=== PATIENT | female | born 1960 | race Caucasian/White ===

== ENCOUNTER 2019-03-04 12:58 | Emergency (ER) | payer MEDICAID, SELFPAY ==
[2019-03-04 12:59] VITALS: BP 149/76; PULSE 91; RESP 16; TEMP 36.7; O2SAT 97; BMI 32.1
--- NOTE | 2019-03-04 13:50 | EKG12_ITS ---
Test Reason : LOWER EXTREM PAIN Blood Pressure : / mmHG Vent. Rate : 089 BPM Atrial Rate : 089 BPM P-R Int : 134 ms QRS Dur : 080 ms QT Int : 374 ms P-R-T Axes : -15 020 -26 degrees QTc Int : 455 ms Normal sinus rhythm Nonspecific ST and T wave abnormality Abnormal ECG Confirmed by SHANTI CAPONE ([id number]), international editorial producer ELVIE DOUGHERTY ([id number]) on 03/06/2019 2:27:19 PM Referred By: Chloe Perez Confirmed By:SHANTI CAPONE
--- NOTE | 2019-03-04 13:51 | CT_ITS ---
STUDY: CTA HEAD AND NECK WITH CONTRAST REASON FOR EXAM: Female, 58 years old. Right leg weakness. No known injury. RADIATION DOSAGE (If Supplied By Facility): CTDIvol = ( 19.83 ) mGy, DLP = ( 629.08 ) mGycm TECHNIQUE: CT angiography was performed with a multi-detector CT scanner. Data acquisition was obtained from the skull base through the vertex following intravenous administration of 100 IV Isovue 370. MIP images were reconstructed from the axial data set. Post-processing of the angiographic images was performed, with multiplanar reformation and 3D reconstruction. Individualized dose optimization techniques were used for this CT. COMPARISON: No relevant priors. FINDINGS: Normal bilateral petrous carotid arteries. There is calcified plaque formation of the right cavernous carotid artery, without a cross-sectional luminal stenosis. There is calcified plaque formation of the left cavernous carotid artery, without a cross-sectional luminal stenosis. Normal right A1 segments of the anterior cerebral artery. Normal left A1 segments of the anterior cerebral artery. Normal intact anterior communicating artery (ACOM). Normal bilateral A2 segments of the anterior cerebral arteries. Normal right M1 and M2 segments of the middle cerebral arteries, with a normal M1 bifurcation. Normal left M1 and M2 segments of the middle cerebral arteries, with a normal M1 bifurcation. Normal right posterior communicating artery (PCOM). Normal left posterior communicating artery (PCOM). Normal bilateral vertebral arteries. Normal basilar artery with a normal basilar bifurcation. The visualized bilateral superior cerebellar (SCA) arteries are normal. Normal bilateral P1, P2 and visualized P3 segments of the posterior cerebral arteries. There is no demonstrated aneurysm of the [place]. There is no demonstrated abnormality of the visualized brain. AORTIC ARCH: There is atherosclerotic calcific plaque formation of the aortic arch and great vessels arising from the aortic arch, without a hemodynamically significant stenosis. Atherosclerotic calcification at the origin of the left subclavian artery and right brachiocephalic artery. RIGHT CAROTID ARTERIES: Normal right common carotid artery (CCA). Normal right common carotid bulb. Normal origin of the right internal carotid (ICA) artery without a hemodynamically significant stenosis. Normal visualized cervical portion of the right internal carotid artery. Normal origin of the right external carotid artery (ECA). LEFT CAROTID ARTERIES: Normal left common carotid artery (CCA). Normal left common carotid bulb. There is mild atherosclerotic plaque formation of the origin of the left internal carotid artery with less than 50% cross sectional diameter stenosis. Normal visualized cervical portion of the left internal carotid artery. Normal origin of the left external carotid artery (ECA). VERTEBRAL ARTERIES: Normal bilateral vertebral arteries. Multilevel degenerative changes of the cervical spine. CT/CTA Head AND Neck W/ Contrast IMPRESSION: Normal CTA Head and neck with contrast. N.B. : The above information has been verbally conveyed by Kyle Looney to Dr Andre MD, on 03/04/2019 14:34:37 (ET). Electronically Signed: Kyle Looney, at 14:35 EDT , Service support ,
--- NOTE | 2019-03-04 14:00 | ED.DCSUM_ITS ---
- ER Visit Summary Date of Service: 03/04/19 Chief Complaint: Right lower leg weakness History of Present Illness: The patient is a 58 F as male history of kidney stones, cholecystectomy and partial parathyroidectomy. Patient states she was in her normal state of health today. Around 11:00 she had pain in her right lower extremity was crampy in the calf. Said that lasted less than an hour resolved. At noon she started having weakness in her right foot and ankle and lower leg. Trouble lifting it. Pain was gone. She had no numbness whatsoever. No other symptoms. No back pain. No trouble with her vision or speech. No facial droop or weakness. No trouble with her speech. She is never had an ything like this before. She denies any headache. She is on no blood thinners. She denies any head trauma. No fever. Physical Examination: Older female no acute distress. Vital signs are stable afebrile. HEENT exam unremarkable. Normal speech. No facial droop. No numbness. Neck nontender no lymphadenopathy. Lungs clear to auscultation bilaterally. Heart regular rate and rhythm no murmur. Abdomen soft and nontender. Normal bowel sounds no peritoneal signs. Extremities moves all 4. The right leg she has trouble lifting the right leg off the bed. When she tries to lift it slides back towards her. Dorsi and plantarflexion is extremely weak. She patient has a foot drop and dorsiflexion is severely weak. She has a palpable DP pulse. The right leg is slightly cool compared to the left but is not cold. On the left calf is nontender no edema. She can wiggle her toes on the right barely. Left leg is normal normal motor strength and sensation able lifted off the bed easily. Strong DP pulse. Upper extremities are normal. Back exam nontender. Neurologically she is awake and alert. No change she has no sensory loss. No numbness. She has motor weakness in the right leg including dorsi and plantar flexion. Weakness with lifting her leg off the bed she is unable. And a diminished right ankle reflex. Patellar reflex appears normal. NIH score is 2. Test Results: CTA head neck read as normal by the radiologist. CT brain without contrast read as normal by the radiologist. All reviewed by me. EKG sinus rhythm rate of 89 no acute abnormality. No ischemia. No dysrhythmia. See unremarkable hemoglobin 15. Electrolytes unremarkable normal creatinine gap. Troponin normal. Emergency Department Course and Treatment: Was for an acute stroke versus acute arterial clot versus cord compression of her back. Currently there is no radiological findings of stroke. The arterial study of her right legs are some small vessel disease in her lower extremity but no acute arterial clot. Multiple repeat exams over the patient's emergency department course and showed no change. No worsening of her symptoms. None of the other extremities are involved and her NIH score remains at 2. She is not a TPA candidate. Treatment Plan: I spoke to the hospitalist will admit the patient. I spoke to neurology who wants the patient admitted also but also wants me to obtain a MRI of her lumbar spine to rule out any type of cord compressing lesion. That has b een ordered and is pending. That will be checked and if no acute surgical emergency the patient will be admitted here. For further evaluation and work-up for a possible acute stroke. Disposition: Admission pending the MRI of the back results. Impression: Acute right lower extremity weakness of uncertain etiology Rule out CVA This note was generated with [employer] dictation software. It may contain incorrect words, spelling, and punctuation that were not noted in review of the chart prior to signing ED Disposition - Plan for ED Patient:
--- NOTE | 2019-03-04 14:03 | CT_ITS ---
STUDY: CT BRAIN WITHOUT CONTRAST REASON FOR EXAM: Female, 58 years old. Right leg weakness. RADIATION DOSAGE (If Supplied By Facility): CTDIvol = ( 44.99 ) mGy, DLP = ( 745.49 ) mGycm TECHNIQUE: Transaxial CT imaging of the brain was performed without administration of intravenous contrast material. Individualized dose optimization techniques were used for this CT. COMPARISON: No relevant priors. FINDINGS: Normal soft tissue structures. Normal calvarium. Normal size ventricles and extra-axial spaces for the patient's age. Normal white matter tracts of the cerebral hemispheres. Normal basal ganglia and thalami. Normal brainstem. Normal cerebellum. There is no intracranial hemorrhage. There are no findings of an acute ischemic infarction. Atherosclerotic calcification of the cavernous portions of the internal carotid arteries bilaterally. Normal visualized paranasal sinuses. CT/Brain/Head without Contrast IMPRESSION: Normal unenhanced CT scan of the brain. N.B. : The above information has been verbally conveyed by Kyle Looney to Burak Powell on 03/04/2019 14:23:17 (ET). Electronically Signed: Kyle Looney, at 14:24 EDT , Service support ,
--- NOTE | 2019-03-04 14:04 | ADUL_ITS ---
Reason For Study: leg weakness, Arterial clot ? Right Velocities Ext. Iliac Artery, dist = 86.3 cm./sec. Common Femoral Artery, mid = 65.4 cm./sec. Supf Femoral Artery, prox = 63.2 cm./sec. Supf Femoral Artery, mid = 59.9 cm./sec. Supf Femoral Artery, dist. = 32.7 cm./sec. Profunda Femoral Artery = 61.0 cm./sec. Popliteal Artery, prox. = 85.5 cm./sec. Popliteal Artery, mid = 24.8 cm./sec. Popliteal Artery, dist = 39.1 cm./sec. Post. Tibial Artery, mid = 14.9 cm./sec. Peroneal Artery, prox = 16.4 cm./sec. Peroneal Artery, mid = 16.4 cm./sec. Peroneal Artery,dist = 14.9 cm./sec. Ant. Tibial Artery, prox = 17.4 cm./sec. Ant. Tibial Artery, mid = 15.0 cm./sec. Ant. Tibial Artery, dist = 20.2 cm./sec. Unable to demonstrate flow in the proximal and distal ST[facility]ER. Procedure The exam was diagnostic. Exam performed portable in ED. Prelim to Dr. Powell. Interpretation Summary Patent right external iliac, common femoral, superficial femoral, and popliteal arteries. Flow could not be identified within the proximal and distal right posterior tibial artery suggesting occlusion at these sites. Patent right peroneal and anterior tibial arteries. Velocities are diminished but reverse component of waveforms still present suggesting 20-49% stenosis based upon waveforms Ordering Physician: Felix Powell Performed By: Austin Turner RVMayra
[2019-03-04 14:05] LABS: Absolute Lymphocyte Count 2.94 X10^3/uL (0.83-4.51); Absolute Neutrophil Count 7.8 X10^3/uL (2.0-7.7); Basophil# 0.06 X10^3/uL; Basophil% 0.5 % (0-1); Eosinophil# 0.13 X10^3/uL; Eosinophils% 1.1 % (0-5); Hematocrit 48.1 % (37-47); Hemoglobin 15.7 g/dL (12.0-15.0); Lymphocyte # 2.94 X10^3/ul (4.0); Lymphocyte % 25.4 % (19-41); Mean Corp Hgb Conc 32.6 g/dL (32-36); Mean Corpuscular Hgb 29.4 pg (27.0-32.0); Mean Corpuscular Volume 90.1 fL (81-99); Mean Platelet Vol. 11.3 fl (6.2-12.0); Monocyte% 5.2 % (0-10); NRBC Flagged by Analyzer 0 % (0-5); Neutrophil # 7.81 X10^3/uL (2.7-7.7); Neutrophil % 67.5 % (47-70); Platelet Count 230 K/mm3 (150-450); RBC Distribution Width CV 13.8 % (11.6-14.6); RBC Distribution Width SD 45.3 fl (35.1-43.9); Red Blood Count 5.34 M/mm3 (4.2-5.4); White Blood Count 11.6 K/mm3 (4.4-11.0)
--- NOTE | 2019-03-04 14:10 | RAD_ITS ---
STUDY: X-RAY CHEST REASON FOR EXAM: Female, 58 years old. Possible CVA. TECHNIQUE: Single AP portable view of the chest. COMPARISON: None. FINDINGS: Hyperinflation. The lungs are clear. There is no demonstrated pleural abnormality. Normal size heart. Normal mediastinum and paresh. Normal visualized pulmonary arteries. Normal visualized aortic arch and descending thoracic aorta. Normal visualized thoracic spine. Normal visualized ribs, clavicles, and shoulders. There is no demonstrated abnormality of the visualized soft tissue structures of the upper abdomen. RAD/Chest 1 View IMPRESSION: Normal x-ray examination of the chest. Electronically Signed: Kyle Looney, at 14:37 EDT , Service support ,
[2019-03-04 14:13] LABS: International Normalized Ratio 1.1; Prothrombin Time (Protime)PT. 13.9 SECONDS (11.7-14.9)
[2019-03-04 14:14] LABS: Partial Thromboplast Time 26.9 Seconds (24.1-36.2)
[2019-03-04 14:21] LABS: Anion Gap 6 (5-15); BUN 24 mg/dL (7-18); BUN/Creat Ratio 25.5 RATIO (10-20); Calcium,Total 9.3 mg/dL (8.5-10.1); Chloride 108 mmol/L (98-107); Creatinine, Serum 0.94 mg/dL (0.55-1.02); EST Glomerular Filtration Rate 64 mL/min (>60); Est Glom Filt Rate - Afr Amer 78 mL/min (>60); Estimated Creatinine Clearance 48.03 ml/min; Glucose 100 mg/dL (74-106); Potassium 3.5 mmol/L (3.5-5.1); Sodium Level 139 mmol/L (136-145)
[2019-03-04] MEDS: 0.9% Normal Saline 1,000 ML 999 ML IV (14:30)
[2019-03-04 14:33] VITALS: O2SAT 97
--- NOTE | 2019-03-04 14:39 | ED.RN ---
PER DR[facility] NOT NECESSARY.
[2019-03-04 15:07] VITALS: BP 106/79; PULSE 84; RESP 21; O2SAT 99
--- NOTE | 2019-03-04 15:53 | CASEMGMT ---
Case Management Progress Notes: Met with patient at bedside, states does not have a PCP, agreed to CM providing a PCP list to establish care at this time-given. Denies any other questions. Nurse notified that patient had to use the bathroom. Poonam John RNCM
--- NOTE | 2019-03-04 16:08 | MRI_ITS ---
STUDY: MRI LUMBAR SPINE WITHOUT CONTRAST REASON FOR EXAM: Female, 58 years old. Right foot drop and leg weakness TECHNIQUE: Standardized fat and water weighted pulse sequences were obtained in the sagittal and axial planes. COMPARISON: None FINDINGS: T12-L1: Normal endplates. Normal disc height, hydration and morphology. Normal bilateral facet joints. Normal central canal and bilateral lateral recesses. Normal bilateral intervertebral neural foramina. Normal lumbar lordosis. There is no substantial scoliosis. Normal conus medullaris that terminates at the L1 level. L1-2: Normal endplates. Normal disc height, hydration and morphology. Normal bilateral facet joints. Normal central canal and bilateral lateral recesses. Normal bilateral intervertebral neural foramina. L2-3: Normal endplates. Normal disc height, hydration and morphology. Vertebral. Bilateral facet joints. Normal central canal and bilateral lateral recesses. Normal bilateral intervertebral neural foramina. L3-4: Normal endplates. Normal disc height, hydration and morphology. Hypertrophic bilateral facet joints. Normal central canal and bilateral lateral recesses. Narrowed bilateral intervertebral neural foramina. L4-5: Normal endplates. Normal disc height, hydration and morphology. Hypertrophic bilateral facet joints. Normal central canal and bilateral lateral recesses. Narrowed bilateral intervertebral neural foramina. L5-S1: Moderate posterior paracentral disc protrusion causing severe narrowing of the neural foramen on the right. Central canal left neural foramen patent. Probable nerve root impingement L5 or S1. Normal visualized sacral ala. Normal visualized paraspinous soft tissue structures. MRI/Spine Lumbar (Routine) IMPRESSION: Moderate right paracentral disc extrusion causing severe narrowing of the neural foramen and L5 or S1 nerve root impingement. Multilevel neural foraminal narrowing as noted above. Electronically Signed: Jose Carlos Brewster MD at 19:31 EDT , Service support ,
[2019-03-04 16:24] VITALS: BP 156/72; PULSE 88; RESP 19; O2SAT 95
--- NOTE | 2019-03-04 16:31 | HP.PCM_ITS ---
Problem List (1) CVA (cerebral vascular accident) Status: Acute Qualifiers: CVA mechanism: unspecified Qualified Code(s): I63.9 - Cerebral infarction, unspecified (2) Elevated BP without diagnosis of hypertension Status: Acute (3) Tobacco use Status: Chronic (4) Hyperparathyroidism Status: Chronic (5) Thyroid nodule Status: Chronic (6) Obesity (BMI 30.0-34.9) Status: Chronic History of Present Illness Date of Admission: 03/04/19 Chief Complaint: RLE weakness The patient is a 58 y/o F w/ PMHx: Tobacco use, Hyperparathyroidism s/p partial resection, Hx Thyroid nodule, Hx Nephrolithiasis, Obesity who presents to the [facility] ED on 03/04/19 w/ history of onset at approximately 11 AM sudden right anterior rojas dull 10 out of 10 pain which lasted approximately 1 hour with no specific trauma or injury although she does admit to very heavy lifting at work more than usual with then onset right lower extremity weakness which continued and progress she notes most notably finding that she was unable to lift up her foot. She denied any other neurological changes or any sensation changes to the right lower extremity. Work-up in the ED included T 98.1, heart rate 88, BP 156/72, respiratory rate 19, 95% room air, CBC with WBC 11.6, hemoglobin 15.7, platelet 230 with left shift, unremarkable coags, unremarkable BMP, troponin less than 0.015, EKG with no acute evidence of ischemia, CTA head and neck unremarkable, CT brain with no acute findings, chest x-ray with no acute cardio primary findings, ultrasound arterial right lower extremity as concern pulse mildly decreased in strength from left lower extremity and mildly more cool to touch than alternate extremity noted to have vascular disease but no acute clot and appropriate flow. ED discussed case with neurologist on-call, Dr. Jose jackson requested MRI lumbar spine to assure no etiology for current presentation. Discussed with ED physician and plan of care includes to obtain MRI lumbar spine if no immediate need for transfer to tertiary facility would plan to admit and per discussion with neurology pursue CVA evaluation. Past Medical History Past Medical History (Chronic Problems): Chronic Problems Tobacco use (Chronic) Hyperparathyroidism (Chronic) Thyroid nodule (Chronic) Obesity (BMI 30.0-34.9) (Chronic) Allergies No Known Allergies Allergy (Verified 03/04/19 12:58) Home Medications: Ambulatory Orders Medication Instructions Recorded Naproxen Sodium 880 mg PO DAILY PRN PRN 03/04/19 Surgical History: - - Partial thyroidectomy, cholecystectomy, bilateral carpal tunnel surgery, bilateral tubal ligation, tonsillectomy. Psychiatric History: No pertinent psych hx [employer] History: No pertinent [employer] history Lives: With Family Smoking Status: Current every day smoker - Patient currently smoking 1 pack/day cigarette tobacco usage, 40-year usage history. Tobacco Use: Cigarettes Alcohol: None Drugs: None - *Family History Maternal History Items: - - Patient notes a maternal family history of diabetes as well as cancer both leukemia and lymphoma. Paternal History Items: - - Patient states she does not know any of her paternal family history as he was not present in her life. Review of Systems Constitutional: Reports: Malaise, Weakness, Fatigue. Denies: Chills, Fever, Weight Change HEENT: Denies: Head Aches, Sinus Congestion, Sinus Drainage Cardiovascular: Denies: Chest Pain, Palpitations Respiratory: Denies: Cough, Shortness of breath at rest, Sputum production Gastrointestinal: Denies: Abdominal Pain, Nausea, Vomiting Genitourinary: Denies: Dysuria Musculoskeletal: Reports: Leg Pain. Denies: Joint Pain, Joint Tenderness Skin: Denies: Rash, Wounds Neurological: Reports: Focal weakness. Denies: Numbness, Tingling Psychiatric: Denies: Anxiety, Depression, Homicidal Ideations, Suicidal Ideations Hematologic/ Lymphatic: Denies: Easy Bruising, Easy Bleeding VTE Information - Inpt Only VTE Present on Admission: No VTE Mechan Device Prophylaxis: SCD's VTE Pharm Prophylaxis ordered?: Yes Patient Problems: Active and Suspected Problems CVA (cerebral vascular accident) (Acute) Elevated BP without diagnosis of hypertension (Acute) Subjective: Seated upright in ED bed, no acute distress, notes that current right lower extremity deficits remains stable. Objective: Physical Examination: General: awake, alert, oriented x 3 and cooperative, seated upright in the ED bed in no apparent distress. Skin: normal color, turgor, no icterus, cyanosis. HEENT: AT/NC, EOMI, PERRLA, MMM, no carotid bruits or JVD noted. Lungs: CTA bilaterally, moderate effort, mild decrease BL bases, no rales, ronchi or wheezing. Heart: Regular rate and rhythm; no gallop, rub audible. Abdomen: soft, obese, NTTP, ND, normal BS, no HSM. Extremities: no cyanosis, clubbing, or edema, absent dorsi plantarflexion of the right lower extremity, DP pulses bilaterally intact although left stronger, left lower extremity foot mildly cooler to touch than right, sensation remains intact. Neurological: patient awake, alert, oriented x 3; cognitive function intact; pupils equally reactive to light and accomodation; cranial nerves II-XII grossly normal, moving all 4 extremities however reduction right lower extremity with absent dorsi plantarflexion of the right lower extremity, DP pulses bilaterally intact although left stronger, left lower extremity foot mildly cooler to touch than right, sensation remains intact, negative Babinski bilaterally, [id number] bilateral upper extremities intact, unable to perform right lower extremity [id number], no drift to right lower extremity with evaluation. Psychiatric: affect appears normal, no acute evidence of depressive or anxiety feelings. - Physical Exam Vital Signs Temp Pulse Resp BP Pulse Ox 98.1 F 88 19 H 156/72 H 95 03/04/19 12:59 03/04/19 16:24 03/04/19 16:24 03/04/19 16:24 03/04/19 16:24 Oxygen Flow Rate (L/min) 2 Oxygen Delivery Method Room Air Weight: 170 lb Body Mass Index (BMI) 32.1 Finger Stick Blood Glucose 100 Laboratory Tests Past 24 Hrs 03/04/19 03/04/19 03/04/19 14:00 14:00 14:00 WBC 11.6 H RBC 5.34 Hgb 15.7 H Hct 48.1 H MCV 90.1 MCH 29.4 MCHC 32.6 RDW Std Deviation 45.3 H RDW Coeff of Jane 13.8 Plt Count 230 MPV 11.3 Immature Gran % (Auto) 0.300 Neut % (Auto) 67.5 Lymph % (Auto) 25.4 [place] % (Auto) 5.2 Eos % (Auto) 1.1 Baso % (Auto) 0.5 Absolute Neuts (auto) 7.8 H Absolute Lymphs (auto) 2.94 Nucleated RBC % 0 PT 13.9 INR 1.1 APTT 26.9 Sodium 139 Potassium 3.5 Chloride 108 H Carbon Dioxide 25.0 Anion Gap 6 BUN 24 H Creatinine 0.94 Estim Creat Clear Calc 48.03 Est GFR (MDRD) Af Amer 78 Est GFR (MDRD) Non-Af 64 BUN/Creatinine Ratio 25.5 H Glucose 100 Calcium 9.3 Troponin I < 0.015 Assessment/Plan All Active Problems CVA (cerebral vascular accident) (Acute) Elevated BP without diagnosis of hypertension (Acute) The patient is a 58 y/o F w/ PMHx: Tobacco use, Hyperparathyroidism s/p partial resection, Hx Thyroid nodule, Hx Nephrolithiasis, Obesity who presents to the [facility] ED on 03/04/19 w/ history of onset at approximately 11 AM sudden right anterior rojas dull 10 out of 10 pain which lasted approximately 1 hour with no specific trauma or injury although she does admit to very heavy lifting at work more than usual with then onset right lower extremity weakness which continued and progress she notes most notably finding that she was unable to lift up her foot. 1. Right lower extremity weakness concerning for possible lumbar disease versus acute CVA: In the ED work-up included unremarkable CBC, coags and BMP, CT head as well as CTA head and neck unremarkable, chest x-ray with no acute findings, E KG with no acute findings. As noted lumbar MRI requested per neurology and pending upon requested evaluation of patient with plan that if unremarkable would continue to pursue admission but if any concerning findings requiring tertiary facility would be transferred from the ED directly per ED physician. If MRI lumbar spine unremarkable with no required transfer to tertiary facility per ED would plan to admit to PCU, will obtain MRI Brain, ECHO, PT/OT/Speech/Nutrition evaluation per protocol. Will continue consult Neurology for evaluation. Will allow permissive HTN, maintain on asa, add statin w/ AM FLP, fall precautions. TSH, magnesium, hemoglobin A1c pending. 2. Elevated BP without hypertension: Elevated BP throughout ED evaluations, given acute presentation as noted would allow permissive hypertension and initiate treatment once appropriate. 3. Tobacco Abuse: Encouraged cessation, inpatient consultation per RT, NR if desired. 4. History of hyperparathyroidism: Resolved status post partial resection. 5. History thyroid nodule: Previously evaluated, stable per patient report, TSH pending. 6. Obesity: Weight loss and lifestyle changes encouraged, nutrition consulted. 7. DVT prophylaxis: SCD, Lovenox. Code Visit Inpatient E&M: 49591 Init Hosp L3
--- NOTE | 2019-03-04 16:31 | NURSING ---
PCU RT LEG WEAKNESS OF UNCERTAIN CAUSE WHITE
[2019-03-04 20:00] VITALS: BP 154/74; PULSE 88; RESP 13; O2SAT 96
[2019-03-04] MEDS: dexAMETHasone 10 MG/ML Vial IV (20:23)
--- NOTE | 2019-03-04 20:33 | PCM.HOSP.N ---
Hospitalist Note 8:33pm Hospitalist informed by ED physician _Dr Lund that patient was being discharged from the ED after ED doctor spoke to spine surgeon. Patient to be seen by spine surgeon in the office tomorrow.
--- NOTE | 2019-03-04 20:37 | ED.DEP ---
ED Disposition - Plan for ED Patient: Instructions: Foot Drop Prescriptions: MethylPREDNISolone DosePak [Medrol DosePak] 4 mg PO UD #1 box Referrals: Jeremiah Barnard MD [NON-STAFF] -
== END 2019-03-04 20:57 | disposition home or self-care (01) ==
PROVIDERS: Emergency Provider Emergency Medicine; Referring Provider Family Medicine
DX: M62.81 Muscle weakness (generalized) (principal); M51.27 Other intervertebral disc displacement, lumbosacral region; M48.07 Spinal stenosis, lumbosacral region; M21.371 Foot drop, right foot; R03.0 Elevated blood-pressure reading, without diagnosis of hypertension; E21.3 Hyperparathyroidism, unspecified; F17.210 Nicotine dependence, cigarettes, uncomplicated; E66.9 Obesity, unspecified; Z68.32 Body mass index [BMI] 32.0-32.9, adult
CPT/HCPCS: 70450; 70496; 70498; 71045; 72148; 80048; 84484; 85025; 85610; 85730; 93005; 93926; 96361; 96374; 99284; J7030; Q9967; A4216

== ENCOUNTER → 2019-03-18 10:34 | Outpatient (CLI) | payer MEDICAID, SELFPAY ==
[2019-03-04 12:59] VITALS: BMI 32.1
--- NOTE | 2019-03-18 10:39 | BD_ITS ---
STUDY: DUAL ENERGY X-RAY ABSORPTIOMETRY / DXA REASON FOR EXAM: Female, 58 years old. The patient is postmenopausal. Loss of height. TECHNIQUE: Bone Mineral Density (BMD) measurements of lumbar spine and bilateral hips were obtained. COMPARISON: None. FINDINGS: Lumbar Spine (L1-L4): g/cm2 (1.194) / T-score (-0.1) / Z-score (1.2) Findings are suggestive of normal bone density with a low fracture risk. Left Femur Total: g/cm2 (0.826) / T-score (-1.4) / Z-score (-0.5) Left Femoral Neck: g/cm2 (0.745) / T-score (-2.1) / Z-score (-0.8) Right Femur Total: g/cm2 (0.827) / T-score (-1.4) / Z-score (-0.5) Right Femoral Neck: g/cm2 (0.773) / T-score (-1.9) / Z-score (-0.6) BD/Dexa Bone Density Study IMPRESSION: The patient is considered osteopenic as outlined below according to World Theron Organization (WHO) criteria with a high fracture risk. Reference Information: The T-score is the number of standard deviations above or below the standard which is normal for young adults at their peak bone mineral density. The World Health Organization (WHO) interprets the T-scores as follows: Above -1 Normal bone density Between -1 and -2.5 Osteopenia Equal to / or below -2.5 Osteoporosis As a practical clinical guideline, osteopenia may be graded as follows: Mild -1 through -1.5 Moderate -1.6 through -2.0 Severe -2.1 through -2.4 The Z-score is the number of standard deviations above or below age-matched controls. A Z-score of less than -1.5 would be considered abnormal. References: 1. NIH Osteoporosis and Related Bone Diseases http://www.osteo.org 2. International Society for Clinical Densitometry http://www.iscd.org 3. National Osteoporosis Foundation http://www.nof.org Electronically Signed: Kyle Looney, at 14:55 EDT , Service support ,
== END ==
PROVIDERS: Referring Provider Orthopaedic Surgery Orthopaedic Surgery of the Spine; Visit Provider Orthopaedic Surgery Orthopaedic Surgery of the Spine
DX: M81.0 Age-related osteoporosis without current pathological fracture (principal); Z78.0 Asymptomatic menopausal state
CPT/HCPCS: 77080

== ENCOUNTER 2022-02-02 15:51 | Inpatient (IN) | payer MEDICAID, SELFPAY ==
[2022-02-02] VITALS (8 sets, daily range): BP systolic 112–136; BP diastolic 59–81; PULSE 67–100; RESP 14–21; TEMP 36.4–36.6; O2SAT 95–100; BMI 31.6; BMI 32.0
--- NOTE | 2022-02-02 16:04 | EKG12_ITS ---
Test Reason : cp Blood Pressure : / mmHG Vent. Rate : 099 BPM Atrial Rate : 099 BPM P-R Int : 154 ms QRS Dur : 078 ms QT Int : 370 ms P-R-T Axes : 051 032 030 degrees QTc Int : 474 ms Normal sinus rhythm Possible Left atrial enlargement Nonspecific ST and T wave abnormality Prolonged QT Abnormal ECG When compared with ECG of 04-MAR-2019 14:02, Nonspecific T wave abnormality has replaced inverted T waves in Inferior leads Confirmed by ENRICO GARCIA, KARLA ([id number]), communications editor ELVIE DOUGHERTY ([id number]) on 02/15/2022 1:08:22 PM Referred By: Andre Confirmed By:KARLA WESTON MD
--- NOTE | 2022-02-02 16:09 | EKG12_ITS ---
Test Reason : cp Blood Pressure : / mmHG Vent. Rate : 099 BPM Atrial Rate : 099 BPM P-R Int : 154 ms QRS Dur : 078 ms QT Int : 370 ms P-R-T Axes : 051 032 030 degrees QTc Int : 474 ms Normal sinus rhythm Possible Left atrial enlargement Nonspecific ST and T wave abnormality Prolonged QT Abnormal ECG Confirmed by WILLIAM GARCIA, NEHEMIAS ([id number]), assistant editor ELVIE DOUGHERTY ([id number]) on 02/03/2022 10:37:16 A M Referred By: Andre Confirmed By:NEVIN THOMAS MD
--- NOTE | 2022-02-02 16:14 | EDS_ITS ---
HPI History of Present Illness Chief Complaint: Chest Pain Narrative Narrative: 61-year-old female with no significant past medical history but does not follow with a doctor presents with chest pain. She was shopping at [employer] and when leaving and getting into her car she felt lightheaded and developed midsternal chest pressure, shortness of breath, nausea and diaphoresis. She drove home because she was with family members. She laid down on the couch but the pain did not improve. She called the squad and they administered full dose aspirin and nitro x1 which completely resolved the pain. She denies any cardiopulmonary history. She smokes 1 PPD x40 years. She said she had a stress test in 2013 prior to having gallbladder surgery and thinks it was normal because she never had a follow-up. She has no recent fever cough. No leg pain or swelling or risk factors for DVT/PE. PFSH PFS Home Medications NK 02/02/22 [History Last Taken Unknown] Allergy/AdvReac Type Severity Reaction Status Date / Time No Known Allergies Allergy Verified 02/02/22 15:55 Surgical History (Updated 02/02/22 @ 16:04 by Chio Chi) History of carpal tunnel surgery History of cholecystectomy Social History Smoking Status: Current every day smoker tobacco type: cigarettes ROS ROS ED ROS Narrative Constitutional: Negative for fever, chills, malaise. Eyes: Negative for visual change. ENT: Negative for sore throat, ear pain, rhinorrhea. CVS: Positive for chest pain. Negative for palpitations, syncope. Respiratory: Positive for shortness of breath. Negative for cough, orthopnea. GI: Positive for nausea. Negative for abdominal pain, vomiting, diarrhea, constipation, melena, hematochezia. : Negative for dysuria, hematuria or frequency. Neuro: Negative for headache, motor/sensory dysfunction. Skin: Negative for rash, abscess, or wound. Musc: Negative for joint pain, swelling, trauma. Heme: Negative for easy bruising, bleeding, lymphadenopathy. EXAM Physical Exam Narrative Exam Narrative: CONST: Patient sitting in no acute distress. EYES: Normal inspection. NECK: Normal inspection. RESP: No respiratory distress, CTAB. CVS: Regular rate and rhythm, no murmur, no gallop. ABD: Soft and nontender, no guarding or rebound, nondistended. SKIN: Color normal, no rash, warm, dry, intact. EXTREMITIES: Normal appearance, no pedal edema. NEURO: Oriented x4. PSYCH: Normal affect.. Const Vital Signs: 02/02/22 15:52 02/02/22 15:55 02/02/22 16:37 Temperature 97.5 F L Temperature Source Temporal Pulse Rate 100 Respiratory Rate 21 H Respiratory Effort Normal Non-Labored Blood Pressure 127/81 H Blood Pressure Mean 96 Pulse Ox 100 Oxygen Delivery Method Room Air Room Air 02/02/22 17:04 Temperature Temperature Source Pulse Rate 95 Respiratory Rate 14 Respiratory Effort Blood Pressure 129/59 H Blood Pressure Mean 82 Pulse Ox 98 Oxygen Delivery Method Room Air Heart Score History: Moderately Suspicious ECG: Normal Age: >45 - <65 years Risk Factors: 1 or 2 Risk Factors Troponin: >1 - <3 Normal Limit Score: 4 MDM MDM MDM Narrative Medical decision making narrative: Patient presents with an episode of chest pain, shortness of breath, nausea and diaphoresis. It was not clearly exertional but she had been walking to her car. It completely resolved after aspirin and nitro x1 from EMS. She appears well and nontoxic. Vital signs are within normal limits. Heart regular. Lungs clear. Abdomen soft and nontender. There is no lower extremity swelling or tenderness. EKG is sinus rhythm with no ischemia and initial troponin 42. Chest x-ray shows no acute process. With patient's concerning chest pain story and risk factors of age and tobacco use and resolution with nitro I feel she requires admission for chest pain rule out. Patient remains chest pain-free here in the ED. Case was discussed with the hospitalist for admission. 1. Chest pain Lab Data Attestation: I reviewed the patient's lab results. Labs: Laboratory Results - last 24 hr 02/02/22 02/02/22 16:02 16:02 WBC 11.4 H RBC 5.33 Hgb 15.7 H Hct 48.0 H MCV 90.1 MCH 29.5 MCHC 32.7 RDW Std Deviation 44.3 H RDW Coeff of Jane 13.4 Plt Count 274 MPV 10.9 Immature Gran % (Auto) 0.500 Neut % (Auto) 69.5 Lymph % (Auto) 24.6 [facility] % (Auto) 3.2 Eos % (Auto) 1.6 Baso % (Auto) 0.6 Absolute Neuts (auto) 7.9 H Absolute Lymphs (auto) 2.79 Nucleated RBC % 0 Sodium 137 Potassium 3.4 L Chloride 106 Carbon Dioxide 19.0 L Anion Gap 12 BUN 14 Creatinine 1.09 H Estim Creat Clear Calc 41.78 Est GFR (MDRD) Af Amer 65 Est GFR (MDRD) Non-Af 54 L BUN/Creatinine Ratio 12.8 Glucose 222 H Calcium 9.3 Troponin I High Sens 42 Radiography Chest X-Ray - ED: 1 View, Read by ED Physician, Read by Radiologist and Normal Diagnostic Testing: Clinical Impression(s) from Imaging Studies Chest X-Ray 02/02/22 16:36 IMPRESSION: No acute cardiopulmonary process identified. Electronically Signed: Elicia Haley MD at 16:53 EDT , ED attending interpretation of mobile chest shows normal heart size, no acute infiltrate edema or effusion. EKG Initial EKG: Attestation: I personally reviewed and interpreted this EKG as follows: Comments: Normal sinus rhythm, NC interval 154 ms, QRS duration 78 ms, QTC 474 ms Prior EKG tracings: available for review Prior: Unchanged Discharge Plan Triage Chief Complaint: Chest Pain ED Midlevel Provider: Teresita Kwan ED Provider: Felix Powell Dx/Rx/DC Orders Prescriptions: No Action NK Primary Care Provider: Care Physician,No Primary Referrals: Care Physician,No Primary [Primary Care Provider] -
--- NOTE | 2022-02-02 16:36 | RAD_ITS ---
HISTORY: chest pain. TECHNIQUE: XR Chest 1 View. COMPARISON: 03/04/2019. FINDINGS: CARDIOMEDIASTINAL BORDERS: Cardiac silhouette within normal limits in size. Mediastinal contour unremarkable. Mild calcification of the aortic knob. LUNGS: Radiographically clear. PLEURA: No pleural effusion or pneumothorax seen. OSSEOUS STRUCTURES: Unremarkable. RAD/Chest 1 View (Portable) IMPRESSION: No acute cardiopulmonary process identified. Electronically Signed: Elicia Haley MD at 16:53 EDT ,
[2022-02-02 16:44] LABS: Absolute Lymphocyte Count 2.79 X10^3/uL (0.83-4.51); Absolute Neutrophil Count 7.9 X10^3/uL (2.0-7.7); Basophil# 0.07 X10^3/uL; Basophil% 0.6 % (0-1); Eosinophil# 0.18 X10^3/uL; Eosinophils% 1.6 % (0-5); Hemoglobin 15.7 g/dL (12.0-15.0); Lymphocyte # 2.79 X10^3/ul (0.83-4.51); Lymphocyte % 24.6 % (19-41); Mean Corp Hgb Conc 32.7 g/dL (32-36); Mean Corpuscular Hgb 29.5 pg (27.0-32.0); Mean Corpuscular Volume 90.1 fL (81-99); Mean Platelet Vol. 10.9 fl (6.2-12.0); Monocyte# 0.36 X10^3/uL; Monocyte% 3.2 % (0-10); NRBC Flagged by Analyzer 0 % (0-5); Neutrophil # 7.89 X10^3/uL (2.7-7.7); Neutrophil % 69.5 % (47-70); Platelet Count 274 K/mm3 (150-450); RBC Distribution Width CV 13.4 % (11.6-14.6); RBC Distribution Width SD 44.3 fl (35.1-43.9); Red Blood Count 5.33 M/mm3 (4.2-5.4); White Blood Count 11.4 K/mm3 (4.4-11.0)
[2022-02-02 17:02] LABS: Anion Gap 12 (5-15); BUN 14 mg/dL (7-18); BUN/Creat Ratio 12.8 RATIO (10-20); Calcium,Total 9.3 mg/dL (8.5-10.1); Chloride 106 mmol/L (98-107); Creatinine, Serum 1.09 mg/dL (0.55-1.02); EST Glomerular Filtration Rate 54 mL/min (>60); Est Glom Filt Rate - Afr Amer 65 mL/min (>60); Estimated Creatinine Clearance 41.78 ml/min; Glucose 222 mg/dL (74-106); Potassium 3.4 mmol/L (3.5-5.1); Sodium Level 137 mmol/L (136-145); Troponin-I HS (w/2H Reflex) 42 pg/mL (3.0-54.0)
--- NOTE | 2022-02-02 17:28 | NURSING ---
HOSPITALIST FOR DR GREEN
--- NOTE | 2022-02-02 17:29 | NURSING ---
PCU OBS KITTOE CHEST PAIN
--- NOTE | 2022-02-02 17:42 | EKG12_ITS ---
Test Reason : CP ADMISSION Blood Pressure : / mmHG Vent. Rate : 094 BPM Atrial Rate : 094 BPM P-R Int : 128 ms QRS Dur : 086 ms QT Int : 340 ms P-R-T Axes : -24 032 023 degrees QTc Int : 425 ms Sinus rhythm with frequent Premature ventricular complexes in a pattern of bigeminy Nonspecific T wave abnormality Abnormal ECG When compared with ECG of 02-FEB-2022 16:04, MANUAL COMPARISON REQUIRED, DATA IS UNCONFIRMED Confirmed by ENRICO GARCIA, KARLA ([id number]), mapping editor KIESHA IBRAHIM ([id number]) on 02/06/2022 11:43:24 AM Referred By: WOLFGANG Confirmed By:KARLA WESTON MD
--- NOTE | 2022-02-02 17:47 | ECHOD_ITS ---
Reason For Study: CHF Procedure This was a 2D Doppler, Color Flow transthoracic echocardiogram. Exam performed portable in patient room. Left Ventricle Normal LV size. Left ventricular systolic function is normal. The estimated ejection fraction is 55 %. Stage 1 diastolic dysfunction. No regional wall motion abnormalities noted. Right Ventricle Normal RV size. Normal systolic function. Atria Normal left atrium. Normal right atrium. Mitral Valve Normal mitral valve. Tricuspid Valve Normal tricuspid valve. Mild (1+) tricuspid valve insufficiency. Pulmonary artery systolic pressure is 23 mmHg. Aortic Valve Normal aortic valve. Pulmonic Valve Normal pulmonic valve. Great Vessels Normal aortic root. The pulmonary artery is normal size. Normal inferior vena cava. Pericardium/Pleural No pericardial effusion. Epicardial fat. MMode/2D Measurements & Calculations LVIDd: 4.5 cm IVSd: 1.0 cm Ao root diam: 3.0 cm LVIDs: 3.5 cm LVPWd: 1.0 cm RVDd: 2.7 cm FS: 23.7 % LAV(MOD-bp): 28.2 ml LVAd ap4: 21.3 cm2 SV(MOD-sp4): 34.2 ml LAV(MOD-bp) Indexed: 15.8 ml/m2 LVLd ap4: 6.7 cm LAV(MOD-sp2): 25.8 ml EDV(MOD-sp4): 56.9 ml LAV(MOD-sp4): 24.9 ml EDV(sp4-el): 57.9 ml LVAs ap4: 12.2 cm2 LVLs ap4: 5.5 cm ESV(MOD-sp4): 22.7 ml ESV(sp4-el): 22.9 ml EF(MOD-sp4): 60.1 % EF(sp4-el): 60.5 % SV(sp4-el): 35.0 ml LA A4 area: 12.3 cm2 LA dimension(2D): 3.3 cm RA A4 area: 10.1 cm2 Doppler Measurements & Calculations MV E max junaid: 65.4 cm/sec Lat Peak E' Junaid: 7.3 cm/sec Med Peak E' Junaid: 5.3 cm/sec MV A max junaid: 97.9 cm/sec E/E' lat: 9.0 E/E' med: 12.3 MV E/A: 0.67 Ao V2 max: 133.0 cm/sec LV V1 max: 84.2 cm/sec PA V2 max: 87.2 cm/sec Ao max P.1 mmHg LV V1 max P.8 mmHg Ao V2 mean: 85.6 cm/sec Ao mean P.3 mmHg Ao V2 VTI: 25.0 cm TR max junaid: 223.4 cm/sec TR max P.0 mmHg ECHO/Echo Complete Interpretation Summary Normal LV size. Left ventricular systolic function is normal. The estimated ejection fraction is 55 %. Stage 1 diastolic dysfunction. Ordering Physician: Charbel White Performed By: Selene Campbell, ANDRES, RVT
--- NOTE | 2022-02-02 17:55 | PCM.HP.STD ---
HPI - General General Date of Admission: 02/02/22 Date of Service: 02/02/22 Chief Complaint: Chest pain HPI Narrative OBB MCNAMARA, is a 61 F with no significant past medical history who presented with chest pain. Per patient she was in her usual state of health when she developed chest discomfort. Also did report experiencing lightheadedness and diaphoresis. She presented to the emergency department as a result. Her initial set of cardiac enzymes and EKG came back unremarkable. Admitted to a monitored bed for further evaluation [facility] Home Medications NK 02/02/22 [History Last Taken Unknown] Allergy/AdvReac Type Severity Reaction Status Date / Time No Known Allergies Allergy Verified 02/02/22 15:55 Family History (Updated 02/02/22 @ 18:[address] Charbel White MD) Mother Leukemia Father Motor vehicle accident Surgical History History of carpal tunnel surgery History of cholecystectomy Social History Smoking Status: Current every day smoker tobacco type: cigarettes ROS ROS Narrative GENERAL: denies fever, chills, night sweats, HEENT: denies headache, sinus congestion, RESPIRATORY: denies cough, sputum production, CARDIAC: chest pain, palpitations, orthopnea, GASTROINTESTINAL: denies abdominal pain, nausea, GENITOURINARY: denies dysuria, urgency, frequency, EXTREMITY: denies swelling MUSCULOSKELETAL: denies current joint pain or tenderness NEUROLOGIC: denies focal numbness, weakness, tingling HEMATOLOGIC: denies easy bruising and/or hemorrhage INTEGUMENT: denies rashes PSYCHIATRIC: denies suicidal or homicidal ideation Vital Signs Vital Signs Vital Signs: 02/02/22 15:52 02/02/22 15:55 02/02/22 16:37 Temperature 97.5 F L Temperature Source Temporal Pulse Rate 100 Respiratory Rate 21 H Respiratory Effort Normal Non-Labored Blood Pressure 127/81 H Blood Pressure Mean 96 Pulse Ox 100 Oxygen Delivery Method Room Air Room Air 02/02/22 17:04 02/02/22 17:39 Temperature 97.7 F L Temperature Source Temporal Pulse Rate 95 94 Respiratory Rate 14 20 H Respiratory Effort Blood Pressure 129/59 H 129/59 H Blood Pressure Mean 82 82 Pulse Ox 98 95 Oxygen Delivery Method Room Air Room Air Weight Weight: 78.3 kg Body Mass Index (BMI) 31.6 Physical Exam Narrative GENERAL: cooperative HEENT: Atraumatic; EYES; Anicteric, Normal Conjunctiva NECK; supple, normal thyroid, RESPIRATORY: Diminished to auscultation CARDIOVASCULAR: Regular S1 S2, GI: soft, normoactive bowel sounds, : No Renal angle tenderness; EXTREMITIES: No edema, no clubbing, MUSCULOSKELETAL: no muscle wasting NEURO: Awake; no lateralizing signs. SKIN: No Rash PSYCH; Flat affect Results Lab / Micro Data Result Diagrams: 02/02/22 16:02 02/02/22 16:02 Labs: Laboratory Results - last 24 hr 02/02/22 16:02: WBC 11.4 H, RBC 5.33, Hgb 15.7 H, Hct 48.0 H, MCV 90.1, MCH 29.5, MCHC 32.7, RDW Std Deviation 44.3 H, RDW Coeff of Jane 13.4, Plt Count 274, MPV 10.9, Immature Gran % (Auto) 0.500, Neut % (Auto) 69.5, Lymph % (Auto) 24.6, Ogle % (Auto) 3.2, Eos % (Auto) 1.6, Baso % (Auto) 0.6, Absolute Neuts (auto) 7.9 H, Absolute Lymphs (auto) 2.79, Nucleated RBC % 0 02/02/22 16:02: Sodium 137, Potassium 3.4 L, Chloride 106, Carbon Dioxide 19.0 L, Anion Gap 12, BUN 14, Creatinine 1.09 H, Estim Creat Clear Calc 41.78, Est GFR (MDRD) Af Amer 65, Est GFR (MDRD) Non-Af 54 L, BUN/Creatinine Ratio 12.8, Glucose 222 H, Calcium 9.3, Troponin I High Sens 42 Radiology Impression Chest X-Ray 02/02/22 16:36 IMPRESSION: No acute cardiopulmonary process identified. Electronically Signed: Elicia Haley MD at 16:53 EDT , Assessment & Plan Assessment/Plan (1) Chest pain: PLAN: Plan Patient is a 61-year-old female presenting with chest pain. 1. Chest pain ? Patient has been admitted to a monitored bed currently ruling out CO with serial cardiac enzymes patient is on undergo nuclear stress test once CO is ruled out 2. Tobacco dependence - Counseled on cessation, offered nicotine patch for tobacco cravings 3. Obesity with BMI of 31.6 ? Weight loss advised 4. Hypokalemia ? Corrected per protocol subsequent monitoring with repeat K ordered for a.m. 5. DVT prophylaxis ? [place] Lovenox Charges/Coding Visit Charges OBSV E&M: 14751 Initial observation care L3
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
[2022-02-02 18:31] LABS: D-Dimer Quantitative (DVT/PE) 0.34 FEU/ug/m (0.27-0.49)
[2022-02-02 18:39] LABS: Reflex Troponin-HS? (from REC) Y
[2022-02-02 19:39] LABS: Troponin-I HS 265 pg/mL (3.0-54.0)
--- NOTE | 2022-02-02 19:56 | PCM.HOSP.N ---
Hospitalist Note Trop significantly arianna, will order therapeutic lovenox, daily baby asa, obtain FLP in AM, obtain mag level, ECHO already ordered, will consult Cardiology and discontinue the stress testing pending their evaluation with additionally judicious hydration start at midnight in preparation for catheterization.
[2022-02-02] MEDS: Enoxaparin 80 MG/0.8 ML Syringe SC (21:29)
[2022-02-02 23:14] LABS: Troponin-I HS 345 pg/mL (3.0-54.0)
[2022-02-02] MEDS: 0.9% Normal Saline 1,000 ML 100 ML IV (23:56)
[2022-02-02] MEDS: 0.9% Saline Lock 10 ML Syringe IV (23:56)
[2022-02-03] VITALS (19 sets, daily range): BP systolic 119–144; BP diastolic 67–119; PULSE 68–82; RESP 14–24; TEMP 36.2–36.9; O2SAT 92–98
[2022-02-03 04:36] LABS: Basophil# 0.09 X10^3/uL; Basophil% 0.8 % (0-1); Eosinophil# 0.15 X10^3/uL; Eosinophils% 1.4 % (0-5); Hematocrit 47.3 % (37-47); Hemoglobin 15.2 g/dL (12.0-15.0); Mean Corp Hgb Conc 32.1 g/dL (32-36); Mean Corpuscular Hgb 29.5 pg (27.0-32.0); Mean Corpuscular Volume 91.7 fL (81-99); Mean Platelet Vol. 10.9 fl (6.2-12.0); Monocyte% 5.4 % (0-10); NRBC Flagged by Analyzer 0 % (0-5); Neutrophil # 5.97 X10^3/uL (2.7-7.7); Platelet Count 265 K/mm3 (150-450); RBC Distribution Width CV 13.5 % (11.6-14.6); RBC Distribution Width SD 45.6 fl (35.1-43.9); Red Blood Count 5.16 M/mm3 (4.2-5.4); White Blood Count 11.1 K/mm3 (4.4-11.0)
[2022-02-03 05:04] LABS: AST(SGOT) 27 U/L (15-37); Alanine Aminotransfer ALT/SGPT 37 U/L (13-56); Albumin, Serum 3.3 g/dL (3.2-5.0); Alkaline Phosphatase 76 U/L (45-117); Anion Gap 7 (5-15); BUN 12 mg/dL (7-18); BUN/Creat Ratio 16.3 RATIO (10-20); Calcium,Total 8.7 mg/dL (8.5-10.1); Chloride 108 mmol/L (98-107); Cholesterol 230 mg/dL (200); Creatinine, Serum 0.74 mg/dL (0.55-1.02); EST Glomerular Filtration Rate 84 mL/min (>60); Est Glom Filt Rate - Afr Amer 102 mL/min (>60); Estimated Creatinine Clearance 58.72 ml/min; Globulin 3.7 g/dL (2.2-4.2); Glucose 115 mg/dL (74-106); High Density Lipoprotein 33 mg/dL; Potassium 3.7 mmol/L (3.5-5.1); Sodium Level 138 mmol/L (136-145); Thyroid Stim Hormone (TSH) 2.07 uIU/mL (0.358-3.74); Triglycerides 319 mg/dL; Very Low Density Lipoprotein 64 mg/dL (5-40)
[2022-02-03] MEDS: Enoxaparin 80 MG/0.8 ML Syringe SC (05:18)
--- NOTE | 2022-02-03 07:46 | PN.HOSP_ITS ---
Subjective Subjective Patient had a significant bump in her troponin consistent with acute NSTEMI. Her nuclear stress test was discontinued consult placed to cardiology plans for patient to undergo left heart catheterization Objective Data Objective Data Vital Signs: Vital Signs Temp Pulse Resp BP Pulse Ox O2 Del Method 97.2 F L 76 18 129/81 H 94 Room Air 02/03/22 03:23 02/03/22 03:23 02/03/22 03:23 02/03/22 03:23 02/03/22 03:23 02/03/22 03:23 Oxygen Delivery Method Room Air Weight: 76.884 kg Body Mass Index (BMI) 32.0 Lab / Micro Data Result Diagrams: 02/03/22 03:54 02/03/22 03:54 Labs: Laboratory Results - last 24 hr 02/02/22 16:02: WBC 11.4 H, RBC 5.33, Hgb 15.7 H, Hct 48.0 H, MCV 90.1, MCH 29.5, MCHC 32.7, RDW Std Deviation 44.3 H, RDW Coeff of Jane 13.4, Plt Count 274, MPV 10.9, Immature Gran % (Auto) 0.500, Neut % (Auto) 69.5, Lymph % (Auto) 24.6, Preston % (Auto) 3.2, Eos % (Auto) 1.6, Baso % (Auto) 0.6, Absolute Neuts (auto) 7.9 H, Absolute Lymphs (auto) 2.79, Nucleated RBC % 0 02/02/22 16:02: Sodium 137, Potassium 3.4 L, Chloride 106, Carbon Dioxide 19.0 L , Anion Gap 12, BUN 14, Creatinine 1.09 H, Estim Creat Clear Calc 41.78, Est GFR (MDRD) Af Amer 65, Est GFR (MDRD) Non-Af 54 L, BUN/Creatinine Ratio 12.8, Glucose 222 H, Calcium 9.3, Troponin I High Sens 42 02/02/22 18:10: D-Dimer Quant (PE/DVT) 0.34 02/02/22 18:10: Troponin I High Sens 265 H* 02/02/22 22:36: Troponin I High Sens 345 H* 02/03/22 03:54: WBC 11.1 H, RBC 5.16, Hgb 15.2 H, Hct 47.3 H, MCV 91.7, MCH 29.5, MCHC 32.1, RDW Std Deviation 45.6 H, RDW Coeff of Jane 13.5, Plt Count 265, MPV 10.9, Immature Gran % (Auto) 0.400, Neut % (Auto) 54.0, Lymph % (Auto) 38.0, Preston % (Auto) 5.4, Eos % (Auto) 1.4, Baso % (Auto) 0.8, Absolute Neuts (auto) 6.0, Absolute Lymphs (auto) 4.20, Nucleated RBC % 0 02/03/22 03:54: Sodium 138, Potassium 3.7, Chloride 108 H, Carbon Dioxide 23.0, Anion Gap 7, BUN 12, Creatinine 0.74, Estim Creat Clear Calc 58.72, Est GFR (MDRD) Af Amer 102, Est GFR (MDRD) Non-Af 84, BUN/Creatinine Ratio 16.3, Glucose 115 H, Calcium 8.7, Total Bilirubin 0.40, Direct Bilirubin 0.10, AST 27, ALT 37, Alkaline Phosphatase 76, Total Protein 7.0, Albumin 3.3, Globulin 3.7, Triglycerides 319 H, Cholesterol 230 H, LDL Cholesterol 133 H, VLDL Cholesterol 64 H, HDL Cholesterol 33 L, TSH 2.07 Radiography Diagnostic Testing: Radiology Impression Chest X-Ray 02/02/22 16:36 IMPRESSION: No acute cardiopulmonary process identified. Electronically Signed: Elicia Haley MD at 16:53 EDT Reading Location ID and State: [facility] / [place] Tel , Service support , Physical Exam Narrative GENERAL: cooperative HEENT: Atraumatic; EYES; Anicteric, Normal Conjunctiva NECK; supple, normal thyroid, RESPIRATORY: Diminished to auscultation CARDIOVASCULAR: Regular S1 S2, GI: soft, normoactive bowel sounds, : No Renal angle tenderness; EXTREMITIES: No edema, no clubbing, MUSCULOSKELETAL: no muscle wasting NEURO: Awake; no lateralizing signs. SKIN: No Rash PSYCH; Flat affect Assessment & Plan Assessment/Plan (1) Chest pain: PLAN: Plan Patient is a 61-year-old female presenting with chest pain. 1. Chest pain secondary to acute NSTEMI ? Patient has been admitted to a monitored bed currently ruling out SD with serial cardiac enzymes patient is on undergo nuclear stress test once SD is ruled out -02/03/2022; Patient had a significant bump in her troponin consistent with acute NSTEMI. Her nuclear stress test was discontinued consult placed to cardiology plans for patient to undergo left heart ca 2. Tobacco dependence - Counseled on cessation, offered nicotine patch for tobacco cravings 3. Obesity with BMI of 31.6 ? Weight loss advised 4. Hypokalemia ? Corrected per protocol subsequent monitoring with repeat K ordered for a.m. 5. DVT prophylaxis ? [place] Lovenox Charges/Coding Visit Charges Inpatient E&M: 18572 Subs Hosp L3
--- NOTE | 2022-02-03 07:56 | PCM.CONS.C ---
Assessment & Plan Assessment/Plan (1) NSTEMI (non-ST elevated myocardial infarction): PLAN: Patient presents with chest discomfort and ruled in for non-ST elevation myocardial infarction. The plan at this time would be to defer any stress testing and proceed with a left heart catheterization. The risk benefits alternatives have been explained to her she understands and agrees to proceed. We will proceed as follows: Aspirin 81 mg a day Lopressor 25 mg twice a day High intensity statin Thank you for allowing me to participate in the care of your patient. Please don't hesitate to call if any issues arise. HPI Consult Data Date of Consult: 02/03/22 HPI Narrative HPI Narrative: BOB MCNAMARA, is a 61 F who presents to the emergency room with chest discomfort. She was shopping at [employer] when she developed some lightheadedness as well as midsternal chest discomfort, nausea and diaphoresis as well as shortness of breath. Without improvement she decided to come to the emergency room where she was given aspirin and nitroglycerin by the squad. In the emergency room she was evaluated and EKG demonstrated sinus rhythm with premature ventricular complexes. Initial cardiac enzymes were normal and subsequently became abnormal. She describes this as a heaviness sensation and she has had it a few times before but did not pay much attention to it. She does use tobacco products and has not seen a physician recently. [facility] Home Medications NK 02/02/22 [History Last Taken Unknown] Allergy/AdvReac Type Severity Reaction Status Date / Time No Known Allergies Allergy Verified 02/02/22 15:55 Family History Mother Leukemia Father Motor vehicle accident Surgical History History of carpal tunnel surgery History of cholecystectomy Social History Smoking Status: Current every day smoker tobacco type: cigarettes Physical Exam Const alert, oriented x3 and no apparent distress General Appearance: cooperative HEENT hearing grossly normal bilaterally Head and Scalp: atraumatic Eyes EOMs intact bilaterally Neck General: normal visual inspection Chest inspection of chest normal and palpation of chest normal Resp normal respiratory effort Auscultation: clear to auscultation bilaterally Cardio regular rate, regular rhythm, S1 normal heart sound and S2 normal heart sound Jugular Venous Distention: JVD GI normal to inspection, nondistended, normoactive bowel sounds Extremity normal capillary refill and no pedal edema Peripheral Pulses: Yes pulses 2+ throughout and femoral pulses present Skin no rashes or lesions noted Neuro oriented x3 and CN's II-XII intact bilaterally Psych Appearance: grossly normal and appropriate Risk Stratification Risk Stratification Applicable: Yes Age >/= 65: No >/= 3 CAD Risk Factors (HTN, HLD, DM, family hx of CAD, or current smoker): No Aspirin Use in the Past 7 Days: No Severe Angina (>/= episodes in 24 hours): Yes EKG ST Changes >/= 0.5mm: No Positive Cardiac Marker: Yes MEE Risk Stratification Score: 2 MEE % Risk: 8% Risk Objective Data Vital Signs: Vital Signs Temp Pulse Resp BP Pulse Ox O2 Del Method 97.2 F L 76 18 129/81 H 94 Room Air 02/03/22 03:23 02/03/22 03:23 02/03/22 03:23 02/03/22 03:23 02/03/22 03:23 02/03/22 03:23 Oxygen Delivery Method Room Air Weight: 169 lb 8 oz Body Mass Index (BMI) 32.0 Lab / Micro Data Result Diagrams: 02/03/22 03:54 02/03/22 03:54 Labs: Laboratory Results - last 24 hr 02/02/22 16:02: WBC 11.4 H, RBC 5.33, Hgb 15.7 H, Hct 48.0 H, MCV 90.1, MCH 29.5, MCHC 32.7, RDW Std Deviation 44.3 H, RDW Coeff of Jane 13.4, Plt Count 274, MPV 10.9, Immature Gran % (Auto) 0.500, Neut % (Auto) 69.5, Lymph % (Auto) 24.6, [place]mer[place]da % (Auto) 3.2, Eos % (Auto) 1.6, Baso % (Auto) 0.6, Absolute Neuts (auto) 7.9 H, Absolute Lymphs (auto) 2.79, Nucleated RBC % 0 02/02/22 16:02: Sodium 137, Potassium 3.4 L, Chloride 106, Carbon Dioxide 19.0 L, Anion Gap 12, BUN 14, Creatinine 1.09 H, Estim Creat Clear Calc 41.78, Est GFR (MDRD) Af Amer 65, Est GFR (MDRD) Non-Af 54 L, BUN/Creatinine Ratio 12.8, Glucose 222 H, Calcium 9.3, Troponin I High Sens 42 02/02/22 18:10: D-Dimer Quant (PE/DVT) 0.34 02/02/22 18:10: Troponin I High Sens 265 H* 02/02/22 22:36: Troponin I High Sens 345 H* 02/03/22 03:54: WBC 11.1 H, RBC 5.16, Hgb 15.2 H, Hct 47.3 H, MCV 91.7, MCH 29.5, MCHC 32.1, RDW Std Deviation 45.6 H, RDW Coeff of Jane 13.5, Plt Count 265, MPV 10.9, Immature Gran % (Auto) 0.400, Neut % (Auto) 54.0, Lymph % (Auto) 38.0, [place]meralda % (Auto) 5.4, Eos % (Auto) 1.4, Baso % (Auto) 0.8, Absolute Neuts (auto) 6.0, Absolute Lymphs (auto) 4.20, Nucleated RBC % 0 02/03/22 03:54: Sodium 138, Potassium 3.7, Chloride 108 H, Carbon Dioxide 23.0, Anion Gap 7, BUN 12, Creatinine 0.74, Estim Creat Clear Calc 58.72, Est GFR (MDRD) Af Amer 102, Est GFR (MDRD) Non-Af 84, BUN/Creatinine Ratio 16.3, Glucose 115 H, Calcium 8.7, Total Bilirubin 0.40, Direct Bilirubin 0.10, AST 27, ALT 37, Alkaline Phosphatase 76, Total Protein 7.0, Albumin 3.3, Globulin 3.7, Triglycerides 319 H, Cholesterol 230 H, LDL Cholesterol 133 H, VLDL Cholesterol 64 H, HDL Cholesterol 33 L, TSH 2.07 Cardiology Labs/Tests 02/02/22 16:02: WBC 11.4 H, RBC 5.33, Hgb 15.7 H, Hct 48.0 H, MCV 90.1, MCH 29.5, MCHC 32.7, Plt Count 274, MPV 10.9, Immature Gran % (Auto) 0.500, Neut % (Auto) 69.5, Lymph % (Auto) 24.6, Esmeralda % (Auto) 3.2, Eos % (Auto) 1.6, Baso % (Auto) 0.6, Absolute Neuts (auto) 7.9 H, Nucleated RBC % 0 02/02/22 16:02: Sodium 137, Potassium 3.4 L, Chloride 106, Carbon Dioxide 19.0 L, Anion Gap 12, BUN 14, Creatinine 1.09 H, Est GFR (MDRD) Af Amer 65, Est GFR (MDRD) Non-Af 54 L, BUN/Creatinine Ratio 12.8, Glucose 222 H, Calcium 9.3 02/02/22 18:10: D-Dimer Quant (PE/DVT) 0.34 02/03/22 03:54: WBC 11.1 H, RBC 5.16, Hgb 15.2 H, Hct 47.3 H, MCV 91.7, MCH 29.5, MCHC 32.1, Plt Count 265, MPV 10.9, Immature Gran % (Auto) 0.400, Neut % (Auto) 54.0, Lymph % (Auto) 38.0, [place]mer[place]da % (Auto) 5.4, Eos % (Auto) 1.4, Baso % (Auto) 0.8, Absolute Neuts (auto) 6.0, Nucleated RBC % 0 02/03/22 03:54: Sodium 138, Potassium 3.7, Chloride 108 H, Carbon Dioxide 23.0, Anion Gap 7, BUN 12, Creatinine 0.74, Est GFR (MDRD) Af Amer 102, Est GFR (MDRD) Non-Af 84, BUN/Creatinine Ratio 16.3, Glucose 115 H, Calcium 8.7, Total Bilirubin 0.40, Direct Bilirubin 0.10, Triglycerides 319 H, Cholesterol 230 H, LDL Cholesterol 133 H, VLDL Cholesterol 64 H, HDL Cholesterol 33 L Rhythm: EKG: ECHO: Stress Test: Cardiac Cath: PCI: CT Surgery: Holter monitor: EPS: PPM: CXR: Chest CT Scan: Radiography Diagnostic Testing: Radiology Impression Chest X-Ray 02/02/22 16:36 IMPRESSION: No acute cardiopulmonary process identified. Electronically Signed: Elicia Haley MD at 16:53 EDT Reading Location ID and State: [facility] / [place] Tel , Service support ,
[2022-02-03] MEDS: 0.9% Normal Saline 1,000 ML 100 ML IV (08:44)
[2022-02-03] MEDS: Metoprolol Tartrate 25 MG Tablet PO (08:44)
[2022-02-03] MEDS: 0.9% Saline Lock 10 ML Syringe IV ×2 (08:44→12:32)
[2022-02-03] MEDS: Aspirin 81 MG TAB.CHEW PO (08:45)
--- NOTE | 2022-02-03 08:45 | CASEMGMT ---
According to the [facility] website, the following are in-network tertiary facilities: [facility], [facility], [facility], [facility], [facility], and . Rayne MARCIAL CM
--- NOTE | 2022-02-03 09:48 | NURSING ---
Report called to ANIKET Murillo in engineering lab technician. Patient being transported via bed with METAL TRIM ERECTOR at this time.
--- NOTE | 2022-02-03 10:56 | CT_ITS ---
INDICATION: cad, limited CT over read ONLY EXAMINATION: CT CHEST WITHOUT CONTRAST - CT Chest W/O Contrast Injection TECHNIQUE: Helically acquired images were obtained of the chest. A radiation dose optimization technique was used for this scan. IV Contrast dosage and agent: None. COMPARISON: None. FINDINGS: LUNGS, PLEURA AND LARGE AIRWAYS: Mild degree of atelectasis at the lung bases. No pleural effusion or thickening. No pneumothorax. THYROID: No thyroid lesions. HEART AND PERICARDIUM: Heart size is normal. No pericardial effusion. CORONARY ARTERIES: Coronary artery calcification is seen. VESSELS: Thoracic aorta is not dilated. MEDIASTINUM AND TAD: No mediastinal or hilar adenopathy. Esophagus is unremarkable. No hiatal hernia. UPPER ABDOMEN: Fatty infiltration of the liver. BONES: Degenerative changes. CT/Limited Chest CT Cardiac Only IMPRESSION: Coronary artery calcification. Electronically Signed: Kyle Looney MD at 12:10 EDT ,
--- NOTE | 2022-02-03 11:30 | CL.D_ITS ---
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 There is moderate LAD disease noted. RECOMMENDATIONS Would recommend cardiac coronary CT and discussed with cardiac surgeon as to the best approach. DESCRIPTION OF PROCEDURE The patient arrived to the procedure lab. The risks and benefits of the procedure as well as a full d escription of our services here and current unavailability of surgical backup were fully explained to the patient and/or their significant other prior to the catheterization. The Timeout was completed, verifying the correct patient and procedure. The patient's procedural site was prepped and draped in the usual fashion. Local anesthetic was given subcutaneously to right radial region with Lidocaine 2% . Using a modified Seldinger technique, arterial access was obtained via the right radial artery, a 6 Fr sheath was inserted. Left Coronary Artery selective angiography was performed in multiple views u sing a 5 Fr. 4.0 [place] catheter. Right Coronary Artery selective angiography was then performed in mu ltiple views using a 5 Fr. JL3.5 catheter.The arterial sheath was pulled and a TR Band was applied fo r hemostasis - 10cc air CORONARY ANGIOGRAPHY DOMINANCE: Right Dominant LEFT HEART ASSESSMENT Left Ventricular Ejection Fraction: by Echo 55 % Normal Left Ventricular systolic function LEFT MAIN: Angiographically normal LEFT ANTERIOR DESCENDING ARTERY: No significant disease noted CIRCUMFLEX ARTERY: No significant disease noted RIGHT CORONARY ARTERY: Dominant large vessel which appears to have its origin in the left coronary cu sp very close to the origin of the left main coronary artery. There appears to be a slitlike long na rrowing close to the ostium and then the vessel itself continues with minimal luminal irregularities. COMPLICATIONS No Complications PROCEDURE MEDICATIONS Fentanyl 50 mcg IV Versed 1 mg IV Versed 1 mg IV Oxygen: 2 L/min via nasal cannula Heparin given IA 02/03/2022 10:14:52 Nitro 200 mcg IC 02/03/2022 10:40:04 Verapamil 2.5mg, Ntg 100mcgs, 3000 units of Heparin given IA 02/03/2022 10:14:52 IV Bolus: .9 NaCl 400 ml total 02/03/2022 10:20:25 SUMMARY OF HEMODYNAMIC DATA Time AIR REST ECG 09:59:15 AO 84/58 (70) SA 10:19:55 Signed By Adam Musa MD On 02/03/2022 11:29:31 AM Adam Musa MD
[2022-02-03] MEDS: Nitroglycerin SL (ED/IMG/CATH) 0.4 MG TABLET SL (11:32)
--- NOTE | 2022-02-03 15:13 | PCM.DC.SUM ---
Providers Date of Admission: 02/02/22 Primary Care Physician: Yuni Primary Care Phys Consultations 02/02/22 19:59 Consult: Cardiology Routine Consulting Provider: Amy Pascual Reason for Consult: NSTEMI EMERGENT Consult: No MD Notified: Yes Date Notified: 02/02/22 Time Notified: 19:59 Method of Notification: Text Reason For Visit: CHEST PAIN Diagnosis Discharge Diagnosis (1) Chest pain: Status: Acute Code(s): R07.9 - Chest pain, unspecified Medications at Discharge Home Medications aspirin 81 mg chewable tablet 81 mg PO BREAKFAST #0 tabs 02/03/22 atorvastatin 40 mg tablet 40 mg PO QHS #0 tabs 02/03/22 metoprolol tartrate 25 mg tablet 25 mg PO BID #0 tabs 02/03/22 Hospital Course Procedures 2-D Echocardiogram and Cardiac catheterization Summary of Care Provided Minutes Spent on Discharge: 35 Hospital Course: Patient is a 61-year-old female presenting with chest pain. 1. Chest pain secondary to acute NSTEMI ? Patient has been admitted to a monitored bed currently ruling out AK with serial cardiac enzymes patient is on undergo nuclear stress test once AK is ruled out -02/03/2022; Patient had a significant bump in her troponin consistent with acute NSTEMI. 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 There is moderate LAD disease noted. Based on the above anatomy cardiology did arrange for patient to be transferred to [facility] for cardiac thoracic surgery evaluation 2. Tobacco dependence - Counseled on cessation, offered nicotine patch for tobacco cravings 3. Obesity with BMI of 31.6 ? Weight loss advised 4. Hypokalemia ? Corrected per protocol subsequent monitoring with repeat K ordered for a.m. 5. DVT prophylaxis ? SC Lovenox Physical Exam Narrative GENERAL: cooperative HEENT: Atraumatic; EYES; Anicteric, Normal Conjunctiva NECK; supple, normal thyroid, RESPIRATORY: Diminished to auscultation CARDIOVASCULAR: Regular S1 S2, GI: soft, normoactive bowel sounds, : No Renal angle tenderness; EXTREMITIES: No edema, no clubbing, MUSCULOSKELETAL: no muscle wasting NEURO: Awake; no lateralizing signs. SKIN: No Rash PSYCH; Flat affect Weight / BMI Weight Weight: 76.884 kg Body Mass Index (BMI) 32.0 ABG / Lab / Microbiology Data Result Diagrams: 02/03/22 03:54 02/03/22 03:54 Laboratory: Laboratory Results - last 24 hr 02/02/22 16:02: WBC 11.4 H, RBC 5.33, Hgb 15.7 H, Hct 48.0 H, MCV 90.1, MCH 29.5, MCHC 32.7, RDW Std Deviation 44.3 H, RDW Coeff of Jane 13.4, Plt Count 274, MPV 10.9, Immature Gran % (Auto) 0.500, Neut % (Auto) 69.5, Lymph % (Auto) 24.6, [place] % (Auto) 3.2, Eos % (Auto) 1.6, Baso % (Auto) 0.6, Absolute Neuts (auto) 7.9 H, Absolute Lymphs (auto) 2.79, Nucleated RBC % 0 02/02/22 16:02: Sodium 137, Potassium 3.4 L, Chloride 106, Carbon Dioxide 19.0 L, Anion Gap 12, BUN 14, Creatinine 1.09 H, Estim Creat Clear Calc 41.78, Est GFR (MDRD) Af Amer 65, Est GFR (MDRD) Non-Af 54 L, BUN/Creatinine Ratio 12.8, Glucose 222 H, Calcium 9.3, Troponin I High Sens 42 02/02/22 18:10: D-Dimer Quant (PE/DVT) 0.34 02/02/22 18:10: Troponin I High Sens 265 H* 02/02/22 22:36: Troponin I High Sens 345 H* 02/03/22 03:54: WBC 11.1 H, RBC 5.16, Hgb 15.2 H, Hct 47.3 H, MCV 91.7, MCH 29.5, MCHC 32.1, RDW Std Deviation 45.6 H, RDW Coeff of Jane 13.5, Plt Count 265, MPV 10.9, Immature Gran % (Auto) 0.400, Neut % (Auto) 54.0, Lymph % (Auto) 38.0, [place] % (Auto) 5.4, Eos % (Auto) 1.4, Baso % (Auto) 0.8, Absolute Neuts (auto) 6.0, Absolute Lymphs (auto) 4.20, Nucleated RBC % 0 02/03/22 03:54: Sodium 138, Potassium 3.7, Chloride 108 H, Carbon Dioxide 23.0, Anion Gap 7, BUN 12, Creatinine 0.74, Estim Creat Clear Calc 58.72, Est GFR (MDRD) Af Amer 102, Est GFR (MDRD) Non-Af 84, BUN/Creatinine Ratio 16.3, Glucose 115 H, Calcium 8.7, Total Bilirubin 0.40, Direct Bilirubin 0.10, AST 27, ALT 37, Alkaline Phosphatase 76, Total Protein 7.0, Albumin 3.3, Globulin 3.7, Triglycerides 319 H, Cholesterol 230 H, LDL Cholesterol 133 H, VLDL Cholesterol 64 H, HDL Cholesterol 33 L, TSH 2.07 Radiography Diagnostic Testing: Radiology Impression Chest X-Ray 02/02/22 16:36 IMPRESSION: No acute cardiopulmonary process identified. Electronically Signed: Elicia Haley MD at 16:53 EDT , Echocardiogram 02/02/22 17:47 Interpretation Summary Normal LV size. Left ventricular systolic function is normal. The estimated ejection fraction is 55 %. Stage 1 diastolic dysfunction. Ordering Physician: Charbel White Performed By: Selene Campbell, ANDRES, RVT Coronary Angiography CT 02/03/22 10:56 IMPRESSION: Coronary artery calcification. Electronically Signed: Kyle Looney MD at 12:10 EDT , D/C Instructions Discharge Diet: No restrictions Discharge Activity: Return to Normal Activity Call your doctor if you observe: Fever of 101 or Higher, Shortness of breath, Fainting spells and Chest pain Meaningful Use Info Meaningful Use Diagnoses (Choose all that apply): AMI AMI/Post PCI/Angioplasty Aspirin given w/in 24hrs of arrival?: Yes ASA at discharge?: Yes Antiplatelet Therapy at Discharge:: Yes Statins at discharge?: Yes Lazaro/ARB at discharge?: No Reason Lazaro/ARB not ordered:: Not indicated Beta Danny at discharge?: Yes Done w/ Acute AK measure.: Yes Documented LVEF (%): 55 Discharge Plan Admission Admit Date/Time: 02/02/22 19:56 Attending Provider: Charbel White Primary Care Provider: Care Physician,No Primary Consulting Providers: Amy Pascual Discharge Orders/Prescriptions Prescriptions: New atorvastatin 40 mg Tablet 40 mg PO QHS Qty: 0 0RF aspirin 81 mg Tablet,Chewable 81 mg PO BREAKFAST Qty: 0 0RF metoprolol tartrate 25 mg Tablet 25 mg PO BID Qty: 0 0RF Referrals / Follow Up: Care Physician,No Primary [Primary Care Provider] - Disposition Disposition (needs filled in before D/C Order can be placed): Acute Care Hospital Charges/Coding Visit Charges Inpatient E&M: 40505 Disch Hosp
--- NOTE | 2022-02-03 16:10 | NURSING ---
Report called to ANIKET Edouard at [facility]. tile setter supervisor time scheduled for 183.
--- NOTE | 2022-02-03 17:17 | CCTA.WCONT ---
CCTA w/Cont Coronary Arteries Date of Study:: 02/03/22 Anomalous coronary artery The patient was brought to the radiology suite in the postabsorptive nonsedated state. The patient was then administered 100 cc of intravenous contrast agent. Images were reconstructed and compared them 0.6 to 5 mm slices. No significant motion artifact was present. LEFT MAIN CORONARY ARTERY: Normal origin from the left coronary cusp and bifurcating into the left circumflex artery and left anterior descending artery. [] LEFT ANTERIOR DESCENDING CORONARY ARTERY: This vessel coursed from the left main coronary artery and in the proximal to mid segment was moderately calcified in the focal area with moderate plaque present. The vessel continued towards the apex of the ventricle. [] LEFT CIRCUMFLEX CORONARY ARTERY: No significant atherosclerotic plaquing noted in this vessel. [] RIGHT CORONARY ARTERY: This vessel arose from the left coronary cusp and coursed in between the aorta posteriorly and the pulmonary artery anteriorly. There was a slitlike narrowing as it coursed through this vessel and then appeared to plump up again and in the mid segment had mild calcification present. It further bifurcated into her posterior descending artery and posterior lateral vessel. 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 The above is suggestive of a malignant course. Moderate calcification and stenosis of the mid left anterior descending artery.
== END 2022-02-03 22:05 | disposition short-term general hospital (02) | DRG 190 ==
LOC: ED 16:38 → PCU 18:40
PROVIDERS: Physician Assistant; Admitting Provider Internal Medicine; Emergency Provider Emergency Medicine; Visit Provider Internal Medicine
DX: I21.4 Non-ST elevation (NSTEMI) myocardial infarction (principal); E66.9 Obesity, unspecified; E87.6 Hypokalemia; F17.210 Nicotine dependence, cigarettes, uncomplicated; Z68.31 Body mass index [BMI] 31.0-31.9, adult
CPT/HCPCS: 36415; 71045; 75574; 76380; 80048; 80061; 80076; 84443; 84484; 85025; 85379; 93005; 93306; 93454; 99152; 99153; 99285; 99406; J7030; Q9967; A4216; C1769; C1894

== ENCOUNTER → 2022-02-24 | Outpatient (CLI) | payer MEDICAID, SELFPAY ==
[2022-02-24 11:23] LABS: Hemoglobin A1c 6.2 % (3.8-5.6)
== END | disposition home or self-care (01) ==
LOC: LAB 06:25
DX: R73.09 Other abnormal glucose (principal)
CPT/HCPCS: 36415; 83036

== ENCOUNTER → 2022-03-08 | Outpatient (CLI) | payer MEDICAID, SELFPAY ==
--- NOTE | 2022-03-08 13:38 | PCM.CR.HP2 ---
CR - History & Physical - General Arrival date:: 03/08/22 Arrival time:: 01:30 Date of Referral:: 03/01/22 Date of CR Evaluation:: 03/08/22 Referring Physician: Dr. Adam Musa Primary Diagnosis: S/P CABG - History of Present Cardiac Event Onset Date: Enter Onset Date of cardiac illnesses in Comment field below Acute Myocardial Infarction within 12 months:: Yes - Acute Poo-JK-[id number] Myocardial Infarction (NSTEMI) Coronary Artery Bypass Graft:: Yes - 02/09/2022 Trans-relocation of the Right Coronary Artery Heart Failure EF <35%:: No - LVEF 55% Type of Symptoms:: Normal day went shopping, put groceries in the car. Sat down and suddenly felt dizzy and sweaty. She made it home okay and had her daughter call 911. Interventions with present event:: Heart cath at [facility] sent patient to [facility] for possible bypass Were there any complications?: no - Sleep Disorder Evaluation Hx of Sleep Apnea: No Do you snore loudly (louder than talking or can be heard through closed doors)?: Yes Do you often feel tired/ fatigued/ sleepy during daytime?: Yes Has anyone observed you stop breathing during sleep?: No History of Hypertension (for STOP score): Yes STOP Results: Positive - Medications Home Medications: Ambulatory Orders Medication Instructions Recorded aspirin 81 mg chewable tablet 81 mg PO BREAKFAST #0 tabs 02/03/22 atorvastatin 80 mg tablet 80 mg PO QHS #90 tabs 03/01/22 clopidogrel 75 mg tablet (Plavix) 75 mg PO DAILY #90 tabs 03/01/22 hydroxyzine HCl 25 mg tablet 25 mg PO BID PRN 03/01/22 metoprolol tartrate 25 mg tablet 12.5 mg PO BID #90 tabs 03/01/22 varenicline 0.5 mg tablet 0.5 mg PO DIRECTED 03/01/22 - Allergies Allergies/Adverse Reactions: Allergies No Known Allergies Allergy (Verified 03/01/22 14:18) Advanced Directives - Advanced Directives Power of Powder Core Tester: No Living Will: No Advance Directives Information Provided: Yes Advance Directives on File: No - MOLST See MOLST form: No Past Medical History - Covid-19 Screening Fever: No Unexplained muscle aches: No Current respiratory symptoms: No Upper respiratory infections symptoms: No Gastro-intestinal symptoms: No Vko-Iebk-Gfdixb symptoms: No Has tested positive for COVID-19 in last 30 days: No Date of testin03/08/22 - 2 vaccinations 1-Booster Had contact w/person w/symptoms or Covid-19 (+) last 14 days: No Has High Risk Exposures ID'd by Health dept/Inf Control team: No 65 years or older:: No Lives in Assisted Living facility:: No Has a chronic lung disease or moderate to severe asthma:: No Has a serious heart condition:: No Immunocompromised:: No Severely obese (Body Mass Index of 40 or higher):: No Diabetic:: No Has chronic kidney disease undergoing dialysis:: No Has liver disease:: No - Past Medical Illness Medical History: Past Medical History (Last Reviewed 03/01/22 @ 15:[address] 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 02/09/2022 Surgical History: - - Partial thyroidectomy, cholecystectomy, bilateral carpal tunnel surgery, bilateral tubal ligation, tonsillectomy. - Family History Summary Family History: Family History (Last Reviewed 03/01/22 @ 15:[address] Adam Musa MD) Mother Leukemia Father Motor vehicle accident Social History - Smoking History Smoking Status: Current every day smoker Years Smokin Packs Smoked per Day: 1 - Down from about 2Pk per day. Hx Tobacco Use: Yes Hx Smoking Exposure: Yes - Alcohol Use Alcohol Usage: No - Substance Abuse Hx Substance Use: No - Occupation Occupation (List type of work in comments):: Retired - Hobbies, Recreation, Social Activities Hobbies: None Recreational Activities: I am able to engage in most, but not all activities - feeling better and getting back to a normal routine Social Environment - Status Marital Status: Single - Current Living Arrangements Living Environment:: Family - Children How many children do you have?: 5 - Live with 2 of my children Do any of your children live nearby?: Yes - Safety Do you feel safe in your surroundings?: Yes - Assistance Do you need any assistance at home?: no Review of Systems - Review of Systems Hints: Right click = Denies (Slash). Left click = Reports (Jamul) Review of Present Symptoms: Reports: Shortness of Breath with Exertion, Operative Discomfort - A little tenderness still when cough, but healing well., Fatigue, Appetite - Normal - getting better, bored so want to eat all the time., Sleep - Normal. Denies: Shortness of Breath at Rest, Angina, Wound Healing, Dizziness/Lightheadedness, Heart Arrhythmia/Irregularities, Appetite - Special Diet, Sexual Changes - Pain Is Patient Pain Free?: Yes Pain Location: none Pain Level: 0/10 Risk Factor Assessment - Chief Complaint Chief Complaint: This is a 61 yr female patient of Dr. Harp who recently experienced chest pain and dyspnea. Upon her arrival to emergency room she was diagnosed with a Acute NSTEMI, taken to the labor relations worker for diagnostic heart cath which revealed the need for surgery. She was sent to the [facility] [place] where they relocated her right coronary artery. She is recovering well. - Vital Signs Temperature: 97.1 F Respiratory Rate: 14 Pulse Ox: 97 Blood Pressure: 113/73 - Pulse Pulse Rate: 76 Pulse Rhythm: Regular - Hypertension How long have you been treated?: recent On medication(s)?: yes Blood Pressure Sitting - Left Arm: 113/73 - Blood Cholesterol/Lipids Total Cholesterol (mg/dL) Goal = less than 200 mg/dL: 230 HDL Cholesterol (mg/dL) Goal = less than 40 mg/dL: 33 LDL Cholesterol (mg/dL) Goal = less than 70 mg/dL: 133 Triglycerides (mg/dL) Goal = less than 150 mg/dL: 319 - Obesity Height: 5 ft 1 in Weight:: 172 lb Weight in Pounds: 172.0 lbs Weight Source: Estimated by Patient Body Mass Index (BMI): 32.5 Nutritional Referral for Obesity: Yes - BMI > 30 - Physical Inactivity Physical Inactivity: Reg Exercise 30 min/day - walk around apartment complex in the mornings and climb stairs in the apartment - Risk Stratification Risk Guidelines: Lowest Risk: Risk Factor for Diabetes, Risk Factor for Hypertension - 113/73, Risk Factor for Sedentary Lifestyle, Risk Factor for Depression, Moderate Risk: Risk Factor for Dyslipidemia, Highest Risk: Risk Factor for Smoking, Risk Factor for Obesity - Family History Family History: Family History (Last Reviewed 03/01/22 @ 15:[address] Adam Musa MD) Mother Leukemia Father Motor vehicle accident Motivation - Motivation to Participate On a scale of 1 to 10, how prepared are you to commit to attending program?: 10 What do you see as barriers to successfully being able to complete the program?: none What do you see as the benefits of succesfully completing the program? In other words, what do you hope to get out of participating in the program?: energy back, feel better, healthier, maybe lose some weight Are there issues you are dealing with that will interfere with completing the program?: none Do you have a spouse or signficant other, family or friends who will help support you to complete the program?: Yes
--- NOTE | 2022-03-08 13:39 | PCM.CR.ITP ---
Diagnosis - General Information Admitting Diagnosis: NSTEMI, S/P CABG Secondary Diagnosis: Coronary Artery Disease, Malformation of coronary vessels, Hyperlipidemia, Tobacco Use, Obesity. Personal Learning Style:: Audio/Visual, Written Barriers to Learning: No Barriers Stage of change r/t lifestyle modifications:: Action Gave educational material for:: Treating Heart Disease, Emotions & Heart Disease, Stress Management & Relaxation, Sleep Disorders & Heart Disease, How The Heart Works, What it means to have Heart Disease, How Coronary Artery Disease is Diagnosed, Heart Procedures, What Heart Medications Do, Risk Factors & Modifications, Living an Active Life, Nutrition - Education/Goals Individual Counseling: Initial Assessment: Nicotine/Smoking, Abnormal Cholesterol Levels, High Blood Pressure, Overweight/Obesity Cardiac Rehabilitation Goals: 1. Maintain the individual as the primary focus of care. 2. To improve the patient's quality of life. 3. Identification of cardiac risk factors and provide cardiac risk factor management. 4. Enhance the psychosocial status of the patient. 5. Reconditioning enough to allow the patient to resume customary activities. 6. Control symptoms of cardiac disease Personal Goals: Initial Assessment: Quit smoking (participate in smoking cessation, Improve management of stress and emotions, Improve energy level, Participate in home exercise program, Get back to work, or to resume activities faster, Improve knowledge of cardiac disease, Improve muscle strength and endurance, Improve diet and eating habits (eat healthier), Control risk factors (learn risk factor modification) Scale for measuring improvement of personal goals: Enter appropriate number in Comments. 2 = Unchanged. 3 = Slightly Better. 4 = Moderate Improvement. 5 = Met my Goal - Diagnosis & Disease Process Outcomes/Goals: Pt IDs own risk factors & lifestyle modifications by Session 10, Verbalizes symptoms of angina & response by session 3., Pt independently manages Plan/Interventions: Assist Pt to ID & engage in lifestyle modification to reduce CVD risk, Instruct on individual risk factors - Safety Referral to Physical Therapy: No Referral to [facility] Case Management: No Fall Risk Assessed:: Yes Assistive Devices:: None Exercise - Initial Assessment - Visit Date of Eval: 03/08/22 Session #:: 0 - Pre-Cardiac Rehab Evaluation Mets: Pre-: >5 METS for 30 minutes by discharge - Physician Prescribed Exercise Modalities: Treadmill, Airdyne, NuStep Frequency: 3x/week for 12 weeks [36 sessions] Intensity: 60-80% of age predicted maximum heart rate reserve Duration: 30-45 minutes as physician prescribed Current METSs:: 3.0 Target Heart Rate:: 102-133 Resting Blood Pressure: 113/73 EKG Type: Sinus Rhythm - Outcomes & Goals Goals:: Verbalizes understanding of THR, RPE & goal METS by session 6, Documents in home exercise log/reports 30 min aerobic 5 day/wk by DC, Demonstrates accurate pulse taking by DC - Intervention & Plan Exercise Program Goals: Instruct on personal THR & RPE, Instruct on MET level & personal MET goal, Show patient to take own pulse /validate performance until accurate, Instruct on home exercise - Physical Activity Home Exercise Physical Activity - Home Exercise: Safe Exercise, Warm-up, Self-monitoring, Cool-Down, Home Exercise > 30 min Daily, Sitting Time <3 hours/daily - Outcomes & Goals Outcomes/Goals: Demonstrates correct Warm-up/exercise Cool-Down (S3) if = 2.5 METs, Verbalizes symptoms of exercise intolerance by Session 3 (S3), Demonstrate safe equipment use (S3) & follows exercise prescrition (6) - Intervention & Plan Plan/Intervention: Instruct warm-up & cool-down if exercising at > 2 METs, Instruct on symptoms of exercise intolerance & actions to take, Instruct & monitor on saf, Assess intial functional capacity & safety risk Nutrition - Initial Assessment - Program Goals Nutrition Program Goals: LDL <100 optimal. 100 - 129 Near optimal. 130 - 159 Borderline High. 160 - 189 High. Total Cholesterol <200 desirable. 200 - 239 Borderline High. >/= 240 High. HDL < 40 Low >/=60 High. Triglycerides <150 desirable. <199 optimal. VlDL 5 - 40. HgbA1C <7%. BMI <25 Patient has diagnosis of Hyperlipidemia (ICD E78)?: Yes - Visit Date of Assessment:: 03/08/22 Session #:: 0 - Pre-Cardiac Rehab Evaluation - Cholesterol/Lipids Triglycerides (mg/dL): 319 Total Cholesterol (mg/dL): 230 LDL Cholesterol (mg/dL): 133 HDL Cholesterol (mg/dL): 33 Lipid Medication: Atorvastatin Determine presence & major risk factors that modify LDL goal: Cigarette smoking, Hypertension or hypertensive medication, Low HDL cholesterol <40 mg/dL*, Age men > 45 years; women >/= 55 years Outcomes/Goals: Pt IDs own risk factors & lifestyle modifications by Session 10, Verbalizes symptoms of angina & response by session 3., Pt independently manages Intervention/Plan: Instruct on personal lipid levels & lipid goals/NCEP guidelines, Instruct on cholesterol Referral to dietitian:: Yes - Medical Nutrition Therapy/Weight Loss - Diabetes (Other Core Measures) Diabetes Type: Not Applicable - Weight Mgt (Other Care) Not Applicable: No Height: 5 ft 1 in Weight:: 172 lb BMI: 32.5 Diagnosis Overweight/Obesity BMI> 30% ICD-10 E66: Yes Diagnosis High BMI/Morbid Obesity BMI> 35% ICD-10 Z68: No Outcomes/Goals: Pt sets, maintains & shows weight loss goal & trend during rehab Intervention/Plan: Instruct on ideal BMI & set weight loss goal w/patient, Assist pt to ID & incorporate diet changes for weight loss by S9, Refer to Structured Weight Loss program as appropriate, Encourage goal of using 250-300dcal per session for weight loss - Healthy Eating Habits Will attend diet classes:: Yes Outcomes/Goals:: Consume diet rich in vegs,fruits,whole grain/high fiber,fish,lean meat, Limit sat/trans fats,cholesterol & added salts & sugars Intervention/Plan:: Assess current eating habits - Education Gave educational materials for:: Healthy eating Nutrition - 30-Day Assessment Nutrition - 60-Day Assessment Nutrition - 90-Day Assessment Nutrition - Final Assessment Core - Initial Assessment - Visit Date of Eval: 03/08/22 Session #:: 0 - Pre-Cardiac Rehab Evaluation - Medication Compliance Preventative Medication(s):: Aspirin, Clopidogrel/P2Y12 inhibit, Statin/lipid, Beta veronica H/O mental health issues: depression, anxiety, or addiction?: No Doesn?t believe in the benefits of treatment?: No Believes medications are unnecessary or harmful?: No Has a concern about medication side effects?: No Expresses concern over the cost of medications?: No Outcomes/Goals: Verbalizes medications,desired effect & common side effects @ DC, Pt self-reports following medication regimen, Keeps card in wallet w/medications listed by DC Interventions/plans: Instruct on medication effects & side effects, Review medication list w/patient every two weeks, Instruct importance of taking meds as ordered & assist problem solving - Tobacco Use Tobacco Use: Cigarettes How long ago did you quit using tobacco products?: Less than 6 months ago How many cigarettes do you smoke per day?: 20 Years Smokin Do you use smokeless tobacco?: No Outcomes/Goals: Smoking cessation achieved or maintained by discharge, Identify aids/strategies for achieving smoking cessation by session 6 Interventions/plan: Instruct on effects of smoking & provide smoking cessation resource, Assist pt to set quit date & provide encouragement, Assist pt to develop strategies to achieve/maintain quit date, Assist pt w/nicotine replacement & medication for cessation success - Hypertension Hypertension Diagnosis:: Hypertension ICD-10 I10 Resting Blood Pressure:: 113/73 [place] [employer] Hypertension Guidelines: [place] [employer] Hypertension Guidelines. Normal BP Less than 120/80. Elevated BP 120/80. Hypertension Stage 1: BP 130-139/80-89. Hypertesnion Stage 2: BP 140 or higher/90 or higher. Hypertension Crisis: BP higher than 180/120 Outcomes/Goals: Able to verbalize/achieve optimal blood pressure <130/80, Incorporates diet changes & exercise for blood pressure control by DC Interventions/plan: Instruct on optimal blood pressure, hypertension & medications, Instruct on effects of sodium, alcohol, stress, exercise &hypertension - Tobacco Cessation Referral Smoking Cessation Referral:: Yes Individual Education/Counseling:: Yes - Individual Smoking Cessation Counseling Recommended Education Schedule Given:: Yes Core - 30-Day Assessment Core - 60-Day Assessment Core - 90 Day Assessment Core - Final Assessment Psychosocial - Initial Assess - VIsit Date of Eval: 03/08/22 Session #:: 0 - Pre-Cardiac Rehab Evaluation Not Applicable: Yes History of previous Mental disease:: No - Psychosocial Test Tool Used:: [employer] QOL Cardiac, PHQ-9 Questionnaire phq-9 Severity: Severity. 1-4 Minimal Depression. 5-9 Mild Depression. 10-14 Moderate Depression. 15-19 Moderately Sever Depression. 20-27 Severe Depression. Rule: - Referral to Behavioral Health PS - Interventions: Yes Attend Stress Management Classes, No Referral to Behavioral Health if PHQ-9 score >9:, No Referral to [facility], No Referral to Physician if PHQ-9 if score is 5-9: - Outcomes/Goals: See list Psychosocial Outcomes/Goals:: ID's personal stressors & 2 strategies to manage stress by discharge - Intervention/Plan: See List Interventions/Plan:: Assess stressors,coping strategies & signs of derpression on admission, Instruct/assist pt to develop coping & personal stress Mgt strategies, Instruct patient to recognize signs & symptoms of depression, Instruct patient to recog Psychosocial - 30-Day Assess Psychosocial - 60-Day Assess Psychosocial - 90-Day Assess Psychosocial - Final Assessmen Patient Health Questionnaire Initial Assessment 1. Little interest or pleasure in doing things: Several days 2. Feeling down, depressed, or hopeless: Several days 3. Trouble falling or staying asleep, or sleeping too much: More than half the days 4. Feeling tired or having little energy: Nearly every day 5. Poor appetite or overeating: Nearly every day 6. Feeling bad about yourself -- or that you are a failure or have let yourself or your family down: Not at all 7. Trouble concentrating on things, such as reading the newspaper or watching television: Several days 8. Moving or speaking so slowly that other people could have noticed. Or the opposite - being so fidgety or restless that you have been moving around a lot more than usual: More than half the days 9. Thoughts that you would be better off , or of hurting yourself in some way: Not at all How difficult have these problems made it for you to do your work, take care of things at home, or get along with other people?: Somewhat difficult Total Score: 13 ADRIANNE-Q SV Test - Statements Examples of risk factors for heart disease: True Angina is chest pain or discomfort: I Don't Know The benefits of resistance training include: I Don't Know Eating more meat and dairy products: False Anti-platelet medications such as aspirin are important: True The only effective way to manage stress: False An exercise warm-up slowly increases heart rate: True Prepared, processed foods usually have high sodium: True Depression is common after a heart attack: I Don't Know The statin medications lower cholesterol: I Don't Know To control blood pressure, lower the amount of sodium: I Don't Know If someone gets chest discomfort during walking: False Transfats are partially hydrogenated vegetable oils: I Don't Know Sleep apnea that is not treated increases the risk: I Don't Know To control cholesterol, one should become a vegetarian: False Someone knows if he/she is exercising at the right level: I Don't Know Diabetes cannot be prevented with exercise & health eating: False Stress is a large risk for heart attack: I Don't Know A diet that can help lower blood pressure is rich in: True Self-Efficacy Initial Assessment We would like to know how confident you are in doing certain activities. Please select your confidence level for:: Select your confidence level for the following using the scale 1-10 where 1 is not at all confident and 10 is totally confident. Your score is the average of all 6 responses. Fatigue: How confident are you that you can keep the fatigue caused by your disease from interfering with the things you want to do? Select Number: 1 Physical Discomfort or Pain: How confident are you that you can keep the physical discomfort or pain of your disease from interfering with the things you want to do? Select Number: 5 Emotional Distress: How confident are you that you can keep the emotional distress caused by your disease from interfering with the things you want to do? Select Number: 8 Other Symptoms or Health Problems: How confident are you that you can keep other symptoms or health problems from interfering with the things you want to do? Select Number: 8 Different Tasks and Activities: How confident are you that you can do the different tasks and activities needed to manage your health condition so as to reduce your need to see a doctor? Select Number: 9 Medication: How confident are you that you can do things other than just taking medication to reduce how much your illness affects your everyday life? Select Number: 10 Total Score:: 6 Nutrition Survey - Nutrition Survey Initial Have you lost >10 lbs over the past 2 months without trying?: No Are you following a special diet at home for diabetes, low fat, or low salt?: Yes Are you interested in meeting with a dietitian for help understanding your diet?: Yes Do you eat less than 3 meals a day?: Yes Do you eat fatty meats (eugene, sausage, ribs, etc), fried foods, desserts, large amounts of salad dressings, margarine, butter, or cheese most days?: No Do you have food allergies? [Enter types in comment field]: No Do you eat in restaurants more than 3 times a week?: No Do you season food with salt, seasoning salt, or garlic salt?: Yes Do you used canned, boxed, frozen meals, or soups, seasoning packets?: Yes Total Score:: 5
[2022-03-08 14:10] VITALS: BP 113/73; PULSE 76; RESP 14; TEMP 36.2; O2SAT 97; BMI 32.5
[2022-03-08 14:48] VITALS: BP 113/73; BMI 32.5
== END | disposition home or self-care (01) ==
LOC: CR 13:28
PROVIDERS: Referring Provider Internal Medicine Cardiovascular Disease; Visit Provider Internal Medicine Cardiovascular Disease
DX: Z95.5 Presence of coronary angioplasty implant and graft (principal); I25.10 Atherosclerotic heart disease of native coronary artery without angina pectoris; E78.5 Hyperlipidemia, unspecified; E66.9 Obesity, unspecified; Q24.5 Malformation of coronary vessels

== ENCOUNTER 2022-03-22 15:45 | Outpatient (RCR) | payer MEDICAID, SELFPAY ==
[2022-03-08 14:48] VITALS: BMI 32.5
== END 2022-03-22 23:59 ==
LOC: CR 15:45
PROVIDERS: Referring Provider Internal Medicine Cardiovascular Disease; Visit Provider Internal Medicine Cardiovascular Disease
DX: I25.10 Atherosclerotic heart disease of native coronary artery without angina pectoris (principal); I25.2 Old myocardial infarction; I49.3 Ventricular premature depolarization; E78.5 Hyperlipidemia, unspecified; E66.9 Obesity, unspecified; F17.200 Nicotine dependence, unspecified, uncomplicated; Q24.5 Malformation of coronary vessels; Z95.1 Presence of aortocoronary bypass graft
CPT/HCPCS: 93798

== ENCOUNTER 2022-04-21 15:45 | Outpatient (RCR) | payer MEDICAID, SELFPAY ==
[2022-03-08 14:48] VITALS: BMI 32.5
--- NOTE | 2022-04-05 09:43 | CR.ITP_ITS ---
Diagnosis Exercise - 30-day Assessment - Visit Date of Eval: 04/05/22 Session #:: 9 - Physician Prescribed Exercise Modalities: Treadmill, NuStep, SciFit Frequency: 3x/week for 12 weeks [36 sessions] Intensity: 60-80% of age predicted maximum heart rate reserve METs - Progression 0.5-1.0 weekly:: .5 Current METSs:: 3 Target Heart Rate:: 102-133 Current RPE:: 11-13 Maximum Excercise HR:: 99 Resting Blood Pressure: 114/68 Maximum Exercise Blood Pressure: 118/72 EKG Type: NSR with PVC's and PAC's - Outcomes & Goals Goals:: Verbalizes understanding of THR, RPE & goal METS by session 6, Documents in home exercise log/reports 30 min aerobic 5 day/wk by DC, Demonstrates accurate pulse taking by DC, Other additional outcome/goals: see below - Intervention & Plan Exercise Program Goals: Instruct on personal THR & RPE, Instruct on MET level & personal MET goal, Show patient to take own pulse /validate performance until accurate, Instruct on home exercise, Other additional plan/int - 30-day Reassessments 30 day Reassessments:: Progressing - THR explained - Physical Activity Home Exercise Physical Activity - Home Exercise: Safe Exercise, Warm-up, Self-monitoring, Cool-Down, Home Exercise > 30 min Daily, Sitting Time <3 hours/daily - Outcomes & Goals Outcomes/Goals: Demonstrates correct Warm-up/exercise Cool-Down (S3) if = 2.5 METs, Verbalizes symptoms of exercise intolerance by Session 3 (S3), Demonstrate safe equipment use (S3) & follows exercise prescrition (6), Other: See below - Intervention & Plan Plan/Intervention: Instruct warm-up & cool-down if exercising at > 2 METs, Instruct on symptoms of exercise intolerance & actions to take, Instruct & monitor on saf, Assess intial functional capacity & safety risk, Other See below - 30-day Reassessments 30 day Reassessments:: Progressing - warm up explained Nutrition - Initial Assessment Nutrition - 30-Day Assessment - Program Goals Nutrition Program Goals: LDL <100 optimal. 100 - 129 Near optimal. 130 - 159 Borderline High. 160 - 189 High. Total Cholesterol <200 desirable. 200 - 239 Borderline High. >/= 240 High. HDL < 40 Low >/=60 High. Triglycerides <150 desirable. <199 optimal. VlDL 5 - 40. HgbA1C <7%. BMI <25 Patient has diagnosis of Hyperlipidemia (ICD E78)?: Yes - Visit Date of Assessment:: 04/05/22 Session #:: 9 - Cholesterol/Lipids (Other Core Measures) Determine presence & major risk factors that modify LDL goal: Cigarette smoking, Hypertension or hypertensive medication, Low HDL cholesterol <40 mg/dL*, Family history of premature CHD in Male < 55 years: female <65 yearsFa, Age men > 45 years; women >/= 55 years Outcomes/Goals: Pt IDs own risk factors & lifestyle modifications by Session 10, Verbalizes symptoms of angina & response by session 3., Pt independently manages, Other Additional Outcomes/Goals: Intervention/Plan: Advocate for lipid panel cholesterol medication if applicable, Instruct on personal lipid levels & lipid goals/NCEP guidelines, Instruct on cholesterol, Other additional plan/int Referral to dietitian:: Yes - medical nutrition therapy 30-day Reassessments:: Progressing - encourage bloodwork - Diabetes (Other Core Measures) Diabetes Type: Not Applicable - Weight Mgt (Other Care) Height: 5 ft 1 in Weight:: 79.379 kg BMI: 33.0 Diagnosis Overweight/Obesity BMI> 30% ICD-10 E66: Yes Diagnosis High BMI/Morbid Obesity BMI> 35% ICD-10 Z68: No Outcomes/Goals: Pt sets, maintains & shows weight loss goal & trend during rehab, Other additional outcomes/goals Intervention/Plan: Instruct on ideal BMI & set weight loss goal w/patient, Assist pt to ID & incorporate diet changes for weight loss by S9, Refer to Structured Weight Loss program as appropriate, Encourage goal of using 250- 300dcal per session for weight loss, Other additional plan/interventions 30 day Reassessments:: Progressing - going to diet class - Healthy Eating Habits Will attend diet classes:: Yes Outcomes/Goals:: Consume diet rich in vegs,fruits,whole grain/high fiber,fish,lean meat, Limit sat/trans fats,cholesterol & added salts & sugars, Other additional outcome/goals: Intervention/Plan:: Assess current eating habits, Other Additional plan/interventions 30-day Reassessments:: Progressing - going to diet class - Education Gave educational materials for:: Signs & symptoms of hypoglycemia, Signs & symptoms of hyperglycemia, Relate diabetes to coronary artery disease, Healthy eating Nutrition - 60-Day Assessment Nutrition - 90-Day Assessment Nutrition - Final Assessment Core - Initial Assessment Core - 30-Day Assessment - Visit Date of Eval: 04/05/22 Session #:: 9 - Medication Compliance Preventative Medication(s):: Aspirin, Clopidogrel/P2Y12 inhibit, Statin/lipid, Beta veronica H/O mental health issues: depression, anxiety, or addiction?: No Doesn?t believe in the benefits of treatment?: No Believes medications are unnecessary or harmful?: No Has a concern about medication side effects?: No Expresses concern over the cost of medications?: No Outcomes/Goals: Verbalizes medications,desired effect & common side effects @ DC, Pt self-reports following medication regimen, Keeps card in wallet w/medications listed by DC, Other additional outcome/goals: Interventions/plans: Instruct on medication effects & side effects, Review medication list w/patient every two weeks, Instruct importance of taking meds as ordered & assist problem solving, Other additional 30-day Reassessments:: Progressing - encouraged to take meds - Tobacco Use Tobacco Use: Cigarettes How long ago did you quit using tobacco products?: Less than 6 months ago How many cigarettes do you smoke per day?: 20 Years Smokin Do you use smokeless tobacco?: No Outcomes/Goals: Smoking cessation achieved or maintained by discharge, Identify aids/strategies for achieving smoking cessation by session 6, Other additional outcome/goals Interventions/plan: Instruct on effects of smoking & provide smoking cessation resource, Assist pt to set quit date & provide encouragement, Assist pt to develop strategies to achieve/maintain quit date, Assist pt w/nicotine replacement & medication for cessation success, Other additional plan/interventions 30-day Reassessments:: Progressing - attended smoking class - Hypertension Hypertension Diagnosis:: Hypertension ICD-10 I10 Resting Blood Pressure:: 114/68 [place] [employer] Hypertension Guidelines: [place] [employer] Hypertension Guidelines. Normal BP Less than 120/80. Elevated BP 120/80. Hypertension Stage 1: BP 130-139/80-89. Hypertesnion Stage 2: BP 140 or higher/90 or higher. Hypertension Crisis: BP higher than 180/120 Peak Exercise Blood Pressure:: 118/72 Outcomes/Goals: Able to verbalize/achieve optimal blood pressure <130/80, Incorporates diet changes & exercise for blood pressure control by DC, Other additional outcomes/goals Interventions/plan: Instruct on optimal blood pressure, hypertension & medications, Instruct on effects of sodium, alcohol, stress, exercise &hypertension, Other additional plan/interventions 30 day Reassessments:: Progressing - encouraged to take meds - Tobacco Cessation Referral Smoking Cessation Referral:: Yes Individual Education/Counseling:: Yes Education Schedule Given:: Yes Core - 60-Day Assessment Core - 90 Day Assessment Core - Final Assessment Psychosocial - Initial Assess Psychosocial - 30-Day Assess - VIsit Date of Eval: 04/05/22 Session #:: 9 History of previous Mental disease:: No Psychosocial - 60-Day Assess Psychosocial - 90-Day Assess Psychosocial - Final Assessmen Patient Health Questionnaire 30-Day Re-eval Assessment 1. Little interest or pleasure in doing things: Several days 2. Feeling down, depressed, or hopeless: Several days 3. Trouble falling or staying asleep, or sleeping too much: More than half the days 4. Feeling tired or having little energy: Nearly every day 5. Poor appetite or overeating: Nearly every day 6. Feeling bad about yourself -- or that you are a failure or have let yourself or your family down: Not at all 7. Trouble concentrating on things, such as reading the newspaper or watching television: Several days 8. Moving or speaking so slowly that other people could have noticed. Or the opposite - being so fidgety or restless that you have been moving around a lot more than usual: More than half the days 9. Thoughts that you would be better off , or of hurting yourself in some way: Not at all How difficult have these problems made it for you to do your work, take care of things at home, or get along with other people?: Somewhat difficult Total Score: 13 Self-Efficacy 30-Day Re-eval Assessment We would like to know how confident you are in doing certain activities. Please select your confidence level for:: Select your confidence level for the following using the scale 1-10 where 1 is not at all confident and 10 is totally confident. Your score is the average of all 6 responses. Fatigue: How confident are you that you can keep the fatigue caused by your disease from interfering with the things you want to do? Select Number: 1 Physical Discomfort or Pain: How confident are you that you can keep the physical discomfort or pain of your disease from interfering with the things you want to do? Select Number: 5 Emotional Distress: How confident are you that you can keep the emotional distress caused by your disease from interfering with the things you want to do? Select Number: 8 Other Symptoms or Health Problems: How confident are you that you can keep other symptoms or health problems from interfering with the things you want to do? Select Number: 8 Different Tasks and Activities: How confident are you that you can do the different tasks and activities needed to manage your health condition so as to reduce your need to see a doctor? Select Number: 9 Medication: How confident are you that you can do things other than just taking medication to reduce how much your illness affects your everyday life? Select Number: 10 Total Score:: 6 Nutrition Survey
[2022-04-05 09:53] VITALS: BP 114/68; BP 118/72; BMI 33.0
== END 2022-04-21 23:59 ==
LOC: CR 15:45
PROVIDERS: Referring Provider Internal Medicine Cardiovascular Disease; Visit Provider Internal Medicine Cardiovascular Disease
DX: Q24.5 Malformation of coronary vessels (principal); I25.10 Atherosclerotic heart disease of native coronary artery without angina pectoris; I25.2 Old myocardial infarction; E78.5 Hyperlipidemia, unspecified; E66.9 Obesity, unspecified; F17.200 Nicotine dependence, unspecified, uncomplicated; Z98.890 Other specified postprocedural states; I49.3 Ventricular premature depolarization
CPT/HCPCS: 93798

== ENCOUNTER → 2022-04-27 | Outpatient (CLI) | payer MEDICAID, SELFPAY ==
[2022-04-05 09:53] VITALS: BMI 33.0
[2022-04-27 08:37] LABS: Anion Gap 7 (5-15); BUN 13 mg/dL (7-18); BUN/Creat Ratio 14.7 RATIO (10-20); Calcium,Total 9.1 mg/dL (8.5-10.1); Chloride 106 mmol/L (98-107); Creatinine, Serum 0.88 mg/dL (0.55-1.02); EST Glomerular Filtration Rate 69 mL/min (>60); Est Glom Filt Rate - Afr Amer 83 mL/min (>60); Glucose 135 mg/dL (74-106); Magnesium 2.2 mg/dL (1.6-2.6); Potassium 3.6 mmol/L (3.5-5.1); Sodium Level 140 mmol/L (136-145)
== END | disposition home or self-care (01) ==
LOC: LAB 06:18
PROVIDERS: Referring Provider Internal Medicine Cardiovascular Disease; Visit Provider Internal Medicine Cardiovascular Disease
DX: Q24.5 Malformation of coronary vessels (principal); I25.2 Old myocardial infarction; I25.10 Atherosclerotic heart disease of native coronary artery without angina pectoris; E78.5 Hyperlipidemia, unspecified; E66.9 Obesity, unspecified; I49.3 Ventricular premature depolarization; Z98.890 Other specified postprocedural states; Z72.0 Tobacco use
CPT/HCPCS: 36415; 80048; 83735

== ENCOUNTER → 2022-05-18 | Outpatient (CLI) | payer MEDICAID, SELFPAY ==
[2022-05-05 12:22] VITALS: BMI 33.0
[2022-05-18 16:15] LABS: Anion Gap 4 (5-15); BUN 15 mg/dL (7-18); BUN/Creat Ratio 16.7 RATIO (10-20); Calcium,Total 9.2 mg/dL (8.5-10.1); Chloride 109 mmol/L (98-107); EST Glomerular Filtration Rate 67 mL/min (>60); Est Glom Filt Rate - Afr Amer 81 mL/min (>60); Glucose 113 mg/dL (74-106); Magnesium 1.9 mg/dL (1.6-2.6); Potassium 3.9 mmol/L (3.5-5.1); Sodium Level 141 mmol/L (136-145)
== END | disposition home or self-care (01) ==
LOC: LAB 15:05
PROVIDERS: Visit Provider Internal Medicine Cardiovascular Disease
DX: I49.3 Ventricular premature depolarization (principal)
CPT/HCPCS: 36415; 80048; 83735

== ENCOUNTER 2022-05-22 15:45 | Outpatient (RCR) | payer MEDICAID, SELFPAY ==
[2022-04-05 09:53] VITALS: BMI 33.0
[2022-04-22 01:39] VITALS: BP 114/68; BP 118/72
--- NOTE | 2022-05-05 12:14 | CR.ITP_ITS ---
Diagnosis Exercise - 60-day Assessment - Visit Date of Eval: 05/05/22 Session #:: 22 - Physician Prescribed Exercise Modalities: Treadmill, Airdyne, NuStep, SciFit, Lateral [place] Frequency: 3x/week for 12 weeks [36 sessions] Intensity: 60-80% of age predicted maximum heart rate reserve Current METSs:: 4 Target Heart Rate:: 102-133 Current RPE:: 12-16 Maximum Excercise HR:: 108 Resting Blood Pressure: 108/70 Maximum Exercise Blood Pressure: 114/62 - Outcomes & Goals Goals:: Verbalizes understanding of THR, RPE & goal METS by session 6, Documents in home exercise log/reports 30 min aerobic 5 day/wk by DC, Demonstrates accurate pulse taking by DC, Other additional outcome/goals: see below - Intervention & Plan Exercise Program Goals: Instruct on personal THR & RPE, Instruct on MET level & personal MET goal, Show patient to take own pulse /validate performance until accurate, Instruct on home exercise, Other additional plan/int - 30-day Reassessments 30 day Reassessments:: Progressing - THR explained - Physical Activity Home Exercise Physical Activity - Home Exercise: Safe Exercise, Warm-up, Self-monitoring, Cool-Down, Home Exercise > 30 min Daily, Sitting Time <3 hours/daily - Outcomes & Goals Outcomes/Goals: Demonstrates correct Warm-up/exercise Cool-Down (S3) if = 2.5 METs, Verbalizes symptoms of exercise intolerance by Session 3 (S3), Demonstrate safe equipment use (S3) & follows exercise prescrition (6), Other: See below - Intervention & Plan Plan/Intervention: Instruct warm-up & cool-down if exercising at > 2 METs, Instruct on symptoms of exercise intolerance & actions to take, Instruct & monitor on saf, Assess intial functional capacity & safety risk, Other See below - 30-day Reassessments 30 day Reassessments:: Progressing - cool down explained Nutrition - Initial Assessment Nutrition - 30-Day Assessment Nutrition - 60-Day Assessment - Program Goals Nutrition Program Goals: LDL <100 optimal. 100 - 129 Near optimal. 130 - 159 Borderline High. 160 - 189 High. Total Cholesterol <200 desirable. 200 - 239 Borderline High. >/= 240 High. HDL < 40 Low >/=60 High. Triglycerides <150 desirable. <199 optimal. VlDL 5 - 40. HgbA1C <7%. BMI <25 Patient has diagnosis of Hyperlipidemia (ICD E78)?: Yes - Visit Date of Assessment:: 05/05/22 Session #:: 22 - Cholesterol/Lipids (Other Core Measures) Determine presence & major risk factors that modify LDL goal: Cigarette smoking, Hypertension or hypertensive medication, Low HDL cholesterol <40 mg/dL*, Family history of premature CHD in Male < 55 years: female <65 yearsFa, Age men > 45 years; women >/= 55 years Outcomes/Goals: Pt IDs own risk factors & lifestyle modifications by Session 10, Verbalizes symptoms of angina & response by session 3., Pt independently manages, Other Additional Outcomes/Goals: Intervention/Plan: Advocate for lipid panel cholesterol medication if applicable, Instruct on personal lipid levels & lipid goals/NCEP guidelines, Instruct on cholesterol, Other additional plan/int Referral to dietitian:: Yes 30-day Reassessments:: Progressing - encouraged blood work - Diabetes (Other Core Measures) Diabetes Type: Not Applicable - Weight Mgt (Other Care) Height: 5 ft 1 in Weight:: 79.379 kg BMI: 33.0 Diagnosis Overweight/Obesity BMI> 30% ICD-10 E66: Yes Diagnosis High BMI/Morbid Obesity BMI> 35% ICD-10 Z68: No Outcomes/Goals: Pt sets, maintains & shows weight loss goal & trend during rehab, Other additional outcomes/goals Intervention/Plan: Instruct on ideal BMI & set weight loss goal w/patient, Assist pt to ID & incorporate diet changes for weight loss by S9, Refer to Structured Weight Loss program as appropriate, Encourage goal of using 250- 300dcal per session for weight loss, Other additional plan/interventions 30 day Reassessments:: Progressing - diet class - Healthy Eating Habits Will attend diet classes:: Yes Outcomes/Goals:: Consume diet rich in vegs,fruits,whole grain/high fiber,fish,lean meat, Limit sat/trans fats,cholesterol & added salts & sugars, Other additional outcome/goals: 30-day Reassessments:: Progressing - diet class - Education Gave educational materials for:: Signs & symptoms of hypoglycemia, Signs & symptoms of hyperglycemia, Relate diabetes to coronary artery disease, Healthy eating Nutrition - 90-Day Assessment Nutrition - Final Assessment Core - Initial Assessment Core - 30-Day Assessment Core - 60-Day Assessment - Visit Date of Eval: 05/05/22 Session #:: 22 - Medication Compliance Preventative Medication(s):: Aspirin, Clopidogrel/P2Y12 inhibit, Statin/lipid, Beta veronica H/O mental health issues: depression, anxiety, or addiction?: No Doesn?t believe in the benefits of treatment?: No Has a concern about medication side effects?: No Expresses concern over the cost of medications?: No Outcomes/Goals: Verbalizes medications,desired effect & common side effects @ DC, Pt self-reports following medication regimen, Keeps card in wallet w/medications listed by DC, Other additional outcome/goals: 30-day Reassessments:: Progressing - taking meds - Tobacco Use Tobacco Use: Cigarettes Do you use smokeless tobacco?: No Outcomes/Goals: Smoking cessation achieved or maintained by discharge, Identify aids/strategies for achieving smoking cessation by session 6, Other additional outcome/goals 30-day Reassessments:: Progressing - attended smoking class - Hypertension Hypertension Diagnosis:: Hypertension ICD-10 I10 Resting Blood Pressure:: 108/70 [employer] [place] [employer] Hypertension Guidelines: [place] [employer] Hypertension Guidelines. Normal BP Less than 120/80. Elevated BP 120/80. Hypertension Stage 1: BP 130-139/80-89. Hypertesnion Stage 2: BP 140 or higher/90 or higher. Hypertension Crisis: BP higher than 180/120 Peak Exercise Blood Pressure:: 114/62 Outcomes/Goals: Able to verbalize/achieve optimal blood pressure <130/80, Incorporates diet changes & exercise for blood pressure control by DC, Other additional outcomes/goals Interventions/plan: Instruct on optimal blood pressure, hypertension & medications, Instruct on effects of sodium, alcohol, stress, exercise &hypertension, Other additional plan/interventions 30 day Reassessments:: Progressing - taking meds3 - Tobacco Cessation Referral Smoking Cessation Referral:: Yes Individual Education/Counseling:: Yes Education Schedule Given:: Yes Core - 90 Day Assessment Core - Final Assessment Psychosocial - Initial Assess Psychosocial - 30-Day Assess Psychosocial - 60-Day Assess - VIsit Date of Eval: 05/05/22 Session #:: 22 History of previous Mental disease:: No Psychosocial - 90-Day Assess Psychosocial - Final Assessmen Patient Health Questionnaire 60-Day Re-eval Assessment 1. Little interest or pleasure in doing things: Several days 2. Feeling down, depressed, or hopeless: Several days 3. Trouble falling or staying asleep, or sleeping too much: More than half the days 4. Feeling tired or having little energy: Nearly every day 5. Poor appetite or overeating: Nearly every day 6. Feeling bad about yourself -- or that you are a failure or have let yourself or your family down: Not at all 7. Trouble concentrating on things, such as reading the newspaper or watching television: Not at all 8. Moving or speaking so slowly that other people could have noticed. Or the opposite - being so fidgety or restless that you have been moving around a lot more than usual: Not at all 9. Thoughts that you would be better off , or of hurting yourself in some way: Not at all How difficult have these problems made it for you to do your work, take care of things at home, or get along with other people?: Not difficult at all Total Score: 10 Self-Efficacy 60-Day Re-eval Assessment We would like to know how confident you are in doing certain activities. Please select your confidence level for:: Select your confidence level for the followin g using the scale 1-10 where 1 is not at all confident and 10 is totally confident. Your score is the average of all 6 responses. Fatigue: How confident are you that you can keep the fatigue caused by your disease from interfering with the things you want to do? Select Number: 1 Physical Discomfort or Pain: How confident are you that you can keep the physical discomfort or pain of your disease from interfering with the things you want to do? Select Number: 5 Emotional Distress: How confident are you that you can keep the emotional distress caused by your disease from interfering with the things you want to do? Select Number: 8 Other Symptoms or Health Problems: How confident are you that you can keep other symptoms or health problems from interfering with the things you want to do? Select Number: 8 Different Tasks and Activities: How confident are you that you can do the different tasks and activities needed to manage your health condition so as to reduce your need to see a doctor? Select Number: 9 Medication: How confident are you that you can do things other than just taking medication to reduce how much your illness affects your everyday life? Select Number: 10 Total Score:: 6 Nutrition Survey
[2022-05-05 12:22] VITALS: BP 108/70; BP 114/62; BMI 33.0
== END 2022-05-22 23:59 ==
LOC: CR 15:45
PROVIDERS: Referring Provider Internal Medicine Cardiovascular Disease; Visit Provider Internal Medicine Cardiovascular Disease
DX: Q24.5 Malformation of coronary vessels (principal); I25.10 Atherosclerotic heart disease of native coronary artery without angina pectoris; I49.3 Ventricular premature depolarization; I25.2 Old myocardial infarction; E78.5 Hyperlipidemia, unspecified; E66.9 Obesity, unspecified; F17.200 Nicotine dependence, unspecified, uncomplicated; Z98.890 Other specified postprocedural states
CPT/HCPCS: 93798

== ENCOUNTER 2022-06-14 15:45 | Outpatient (RCR) | payer MEDICAID, SELFPAY ==
[2022-05-05 12:22] VITALS: BMI 33.0
[2022-05-23 00:34] VITALS: BP 108/70; BP 114/62
--- NOTE | 2022-06-05 09:52 | CR.ITP_ITS ---
Diagnosis Exercise - 90-day Assessment - Visit Date of Eval: 06/05/22 Session #:: 31 - Physician Prescribed Exercise Modalities: Treadmill, NuStep, SciFit Frequency: 3x/week for 12 weeks [36 sessions] Intensity: 60-80% of age predicted maximum heart rate reserve Duration: 30 - 45 minutes Current METSs:: 4.0 Target Heart Rate:: 102-133 Current RPE:: 11-13 Maximum Excercise HR:: 106 Resting Blood Pressure: 112/58 Maximum Exercise Blood Pressure: 142/70 EKG Type: NSR to sinus tach, occasional PVC, PACs bigeminy & ventricular couplets Current Physical Activity or Exercising minutes: 41:08 - Outcomes & Goals Goals:: Verbalizes understanding of THR, RPE & goal METS by session 6, Documents in home exercise log/reports 30 min aerobic 5 day/wk by DC, Demonstrates accurate pulse taking by DC - Intervention & Plan Exercise Program Goals: Instruct on personal THR & RPE, Instruct on MET level & personal MET goal, Show patient to take own pulse /validate performance until accurate, Instruct on home exercise - 30-day Reassessments 30 day Reassessments:: Not Met - Goal is 5.0 MET - Physical Activity Home Exercise Physical Activity - Home Exercise: Safe Exercise, Warm-up, Self-monitoring, Cool-Down, Home Exercise > 30 min Daily, Sitting Time <3 hours/daily - Outcomes & Goals Outcomes/Goals: Demonstrates correct Warm-up/exercise Cool-Down (S3) if = 2.5 ME Ts, Verbalizes symptoms of exercise intolerance by Session 3 (S3), Demonstrate safe equipment use (S3) & follows exercise prescrition (6) - Intervention & Plan Plan/Intervention: Instruct warm-up & cool-down if exercising at > 2 METs, Instruct on symptoms of exercise intolerance & actions to take, Instruct & monitor on saf, Assess intial functional capacity & safety risk - 30-day Reassessments 30 day Reassessments:: Met Nutrition - Initial Assessment Nutrition - 30-Day Assessment Nutrition - 60-Day Assessment Nutrition - 90-Day Assessment - Program Goals Nutrition Program Goals: LDL <100 optimal. 100 - 129 Near optimal. 130 - 159 Borderline High. 160 - 189 High. Total Cholesterol <200 desirable. 200 - 239 Borderline High. >/= 240 High. HDL < 40 Low >/=60 High. Triglycerides <150 desirable. <199 optimal. VlDL 5 - 40. HgbA1C <7%. BMI <25 Patient has diagnosis of Hyperlipidemia (ICD E78)?: Yes - Visit Date of Assessment:: 06/05/22 Session #:: 34 - Cholesterol/Lipids (Other Core Measures) Triglycerides (mg/dL): 0 - last drawn on 02/03/22 Determine presence & major risk factors that modify LDL goal: Cigarette smoking, Hypertension or hypertensive medication, Family history of premature CHD in Male < 55 years: female <65 yearsFa Outcomes/Goals: Pt IDs own risk factors & lifestyle modifications by Session 10, Verbalizes symptoms of angina & response by session 3., Pt independently manages Intervention/Plan: Instruct on personal lipid levels & lipid goals/NCEP guidelines, Instruct on cholesterol Referral to dietitian:: No - Patient will not return calls from Nutritional Services 30-day Reassessments:: Not Met - Diabetes (Other Core Measures) Diabetes Type: Not Applicable - Weight Mgt (Other Care) Not Applicable: No Height: 5 ft 1 in Weight:: 176 lb 8 oz BMI: 33.3 Diagnosis Overweight/Obesity BMI> 30% ICD-10 E66: Yes Diagnosis High BMI/Morbid Obesity BMI> 35% ICD-10 Z68: No Outcomes/Goals: Pt sets, maintains & shows weight loss goal & trend during rehab Intervention/Plan: Instruct on ideal BMI & set weight loss goal w/patient, A ssist pt to ID & incorporate diet changes for weight loss by S9, Encourage goal of using 250-300dcal per session for weight loss 30 day Reassessments:: Not Met - actually has gained weight - Healthy Eating Habits Will attend diet classes:: Yes Outcomes/Goals:: Consume diet rich in vegs,fruits,whole grain/high fiber,fish,lean meat, Limit sat/trans fats,cholesterol & added salts & sugars Intervention/Plan:: Assess current eating habits 30-day Reassessments:: Not Met - Education Gave educational materials for:: Healthy eating Nutrition - Final Assessment Core - Initial Assessment Core - 30-Day Assessment Core - 60-Day Assessment Core - 90 Day Assessment - Visit Date of Eval: 06/05/22 Session #:: 34 - Medication Compliance Preventative Medication(s):: Aspirin, Clopidogrel/P2Y12 inhibit, Statin/lipid, Beta veronica H/O mental health issues: depression, anxiety, or addiction?: No Doesn?t believe in the benefits of treatment?: No Believes medications are unnecessary or harmful?: No Has a concern about medication side effects?: No Expresses concern over the cost of medications?: No Outcomes/Goals: Verbalizes medications,desired effect & common side effects @ DC, Pt self-reports following medication regimen, Keeps card in wallet w/medications listed by DC Interventions/plans: Instruct on medication effects & side effects, Review medication list w/patient every two weeks, Instruct importance of taking meds as ordered & assist problem solving 30-day Reassessments:: Progressing - Tobacco Use Tobacco Use: Cigarettes How many cigarettes do you smoke per day?: 10 Years Smokin Do you use smokeless tobacco?: No Outcomes/Goals: Smoking cessation achieved or maintained by discharge, Identify aids/strategies for achieving smoking cessation by session 6 Interventions/plan: Instruct on effects of smoking & provide smoking cessation resource, Assist pt to set quit date & provide encouragement, Assist pt to develop strategies to achieve/maintain quit date, Assist pt w/nicotine replacement & medication for cessation success 30-day Reassessments:: Not Met - patient continues to smoke daily made no effort to consult with Smoking Cessation or to quit. - Hypertension Hypertension Diagnosis:: Hypertension ICD-10 I10 Resting Blood Pressure:: 118/72 [place] [employer] Hypertension Guidelines: [place] [employer] Hypertension Guidelines. Normal BP Less than 120/80. Elevated BP 120/80. Hypertension Stage 1: BP 130-139/80-89. Hypertesnion Stage 2: BP 140 or higher/90 or higher. Hypertension Crisis: BP higher than 180/120 Peak Exercise Blood Pressure:: 150/74 Outcomes/Goals: Able to verbalize/achieve optimal blood pressure <130/80, Incorporates diet changes & exercise for blood pressure control by DC Interventions/plan: Instruct on optimal blood pressure, hypertension & medications, Instruct on effects of sodium, alcohol, stress, exercise &hypertension 30 day Reassessments:: Met - Tobacco Cessation Referral Smoking Cessation Referral:: Yes Individual Education/Counseling:: No Education Schedule Given:: Yes Core - Final Assessment Psychosocial - Initial Assess Psychosocial - 30-Day Assess Psychosocial - 60-Day Assess Psychosocial - 90-Day Assess - VIsit Date of Eval: 06/05/22 Session #:: 34 Not Applicable: Yes History of previous Mental disease:: No - Psychosocial Test Tool Used:: PHQ-9 Questionnaire phq-9 Severity: Severity. 1-4 Minimal Depression. 5-9 Mild Depression. 10-14 Moderate Depression. 15-19 Moderately Sever Depression. 20-27 Severe Depression. Rule: - Referral to Behavioral Health PS - Interventions: Yes Attend Stress Management Classes, No Referral to Behavioral Health if PHQ-9 score >9:, No Referral to [facility], No Referral to Physician if PHQ-9 if score is 5-9: - Outcomes/Goals: See list Psychosocial Outcomes/Goals:: ID's personal stressors & 2 strategies to manage stress by discharge - Intervention/Plan: See List Interventions/Plan:: Assess stressors,coping strategies & signs of derpression on admission, Instruct/assist pt to develop coping & personal stress Mgt strategies, Instruct patient to recognize signs & symptoms of depression, Instruct patient to recog - 30-day Reassessments: 30 day Reassessments:: Progressing Psychosocial - Final Assessmen Patient Health Questionnaire 90-Day Re-eval Assessment 1. Little interest or pleasure in doing things: Several days 2. Feeling down, depressed, or hopeless: Several days 3. Trouble falling or staying asleep, or sleeping too much: More than half the days 4. Feeling tired or having little energy: Nearly every day 5. Poor appetite or overeating: Nearly every day 6. Feeling bad about yourself -- or that you are a failure or have let yourself or your family down: Not at all 7. Trouble concentrating on things, such as reading the newspaper or watching television: Several days 8. Moving or speaking so slowly that other people could have noticed. Or the opposite - being so fidgety or restless that you have been moving around a lot more than usual: More than half the days 9. Thoughts that you would be better off , or of hurting yourself in some way: Not at all How difficult have these problems made it for you to do your work, take care of things at home, or get along with other people?: Somewhat difficult Total Score: 13 Self-Efficacy 90-Day Re-eval Assessment We would like to know how confident you are in doing certain activities. Please select your confidence level for:: Select your confidence level for the following using the scale 1-10 where 1 is not at all confident and 10 is totally confident. Your score is the average of all 6 responses. Fatigue: How confident are you that you can keep the fatigue caused by your disease from interfering with the things you want to do? Select Number: 5 Physical Discomfort or Pain: How confident are you that you can keep the physical discomfort or pain of your disease from interfering with the things you want to do? Select Number: 7 Emotional Distress: How confident are you that you can keep the emotional distress caused by your disease from interfering with the things you want to do? Select Number: 9 Other Symptoms or Health Problems: How confident are you that you can keep other symptoms or health problems from interfering with the things you want to do? Different Tasks and Activities: How confident are you that you can do the different tasks and activities needed to manage your health condition so as to reduce your need to see a doctor? Select Number: 10 Medication: How confident are you that you can do things other than just taking medication to reduce how much your illness affects your everyday life? Select Number: 10 Nutrition Survey
[2022-06-05 10:02] VITALS: BP 112/58; BP 118/72; BP 150/74; BMI 33.3
== END 2022-06-21 23:59 ==
LOC: CR 15:45
PROVIDERS: Referring Provider Internal Medicine Cardiovascular Disease; Visit Provider Internal Medicine Cardiovascular Disease
DX: Q24.5 Malformation of coronary vessels (principal); I25.10 Atherosclerotic heart disease of native coronary artery without angina pectoris; I49.3 Ventricular premature depolarization; I25.2 Old myocardial infarction; E78.5 Hyperlipidemia, unspecified; E66.9 Obesity, unspecified; F17.200 Nicotine dependence, unspecified, uncomplicated; Z98.890 Other specified postprocedural states
CPT/HCPCS: 93798

== ENCOUNTER → 2022-06-23 | Outpatient (CLI) | payer MEDICAID, SELFPAY ==
[2022-06-05 10:02] VITALS: BMI 33.3
[2022-06-23 07:36] LABS: AST(SGOT) 29 U/L (15-37); Alanine Aminotransfer ALT/SGPT 35 U/L (13-56); Albumin, Serum 3.8 g/dL (3.2-5.0); Alkaline Phosphatase 107 U/L (45-117); Bilirubin, Direct 0.13 mg/dL (0.00-0.30); Cholesterol 140 mg/dL (200); Globulin 4.3 g/dL (2.2-4.2); High Density Lipoprotein 48 mg/dL; Protein, Total 8.1 g/dL (6.4-8.2); Triglycerides 129 mg/dL; Very Low Density Lipoprotein 26 mg/dL (5-40)
== END | disposition home or self-care (01) ==
PROVIDERS: Referring Provider Nurse Practitioner Gerontology; Visit Provider Nurse Practitioner Gerontology
DX: E78.5 Hyperlipidemia, unspecified (principal)
CPT/HCPCS: 36415; 80061; 80076

== ENCOUNTER → 2024-09-26 | Outpatient (CLI) | payer MEDICARE, MEDICAID, SELFPAY ==
[2022-06-05 10:02] VITALS: BMI 33.3
[2024-09-26 08:17] LABS: Cholesterol 136 mg/dL (<=200); High Density Lipoprotein 46 mg/dL; Low Density Lipoprotein Calc. 56 mg/dL; Triglycerides 171 mg/dL; Very Low Density Lipoprotein 34 mg/dL (5-40); cholesterol:hdl ratio screen 2.98
[2024-09-26 08:33] LABS: AST(SGOT) 33 U/L (<=31); Alanine Aminotransfer ALT/SGPT 27 U/L (<=34); Albumin, Serum 4.1 g/dL (3.4-4.8); Alkaline Phosphatase 92 U/L (35-104); Anion Gap 19 (5-15); BUN 14 mg/dL (4-19); BUN/Creat Ratio 16.7 RATIO (10-20); Bilirubin, Direct 0.18 mg/dL (0.00-0.30); Calcium,Total 9.4 mg/dL (7.6-11.0); Carbon Dioxide 18.2 mmol/L (21.0-32.0); Chloride 101 mmol/L (98-108); Creatinine, Serum 0.81 mg/dL (0.70-1.20); EST Glomerular Filtration Rate 80 (>60); Globulin 3.5 g/dL (2.2-4.2); Glucose 176 mg/dL (70-99); Protein, Total 7.5 g/dL (5.9-8.4); Sodium Level 138 mmol/L (133-145); Total Bilirubin 0.44 mg/dL (0.00-1.30)
== END | disposition home or self-care (01) ==
PROVIDERS: PCP Nurse Practitioner Family; Referring Provider Nurse Practitioner Family; Visit Provider Nurse Practitioner Family
DX: E78.2 Mixed hyperlipidemia (principal); Q24.5 Malformation of coronary vessels; I25.10 Atherosclerotic heart disease of native coronary artery without angina pectoris; Z72.0 Tobacco use
CPT/HCPCS: 36415; 80048; 80061; 80076